=== PATIENT | male | born 1960 | race Caucasian/White ===

== ENCOUNTER → 2017-04-28 | Outpatient (CLI) | payer BC ==
[~2017-04-28] MED LIST: ABIL5 PO; ASPI-1159 PO; DOXE150C PO; GABA-529 PO; LIRA0.6P2 SQ; LORA1TAB PO; OMEP20TA80 PO; ROSU10TA PO; TADA5TAB PO; TAMS0.4C31 PO; TRAM50TA3 PO
[2017-04-28 15:09] LABS: CARBON DIOXIDE 27 mEq/L (21-32); CHLORIDE 104 mEq/L (98-107)
[2017-04-28 16:13] LABS: PROSTRATE SPECIFIC AG TOTAL 1.09 ng/mL (0.0-4.0)
== END | disposition home or self-care (01) ==
LOC: LAB 14:11
PROVIDERS: ATTEND Pathology Anatomic Pathology & Clinical Pathology
DX: E11.40 Type 2 diabetes mellitus with diabetic neuropathy, unspecified (principal); R97.20 Elevated prostate specific antigen [PSA]
CPT/HCPCS: 36415; 80053; 82607; 83036; 84153; 84443

== ENCOUNTER → 2018-03-02 | Outpatient (CLI) | payer BC ==
[~2018-03-02] MED LIST changes: +OMEP20TA2 PO; -OMEP20TA80 PO
[2018-03-02 14:21] LABS: BASOPHILS % 0.5 % (0.0-2.0); EOSINOPHILS % 2.4 % (0.0-5.0); HEMATOCRIT. 42.9 % (42.0-52.0); HEMOGLOBIN. 14.5 g/dL (14.0-18.0); LYMPHOCYTES % 23.4 % (20.0-50.0); MEAN CORPUSCULAR HEMOGLOBIN 29.9 pg (28.0-32.0); MEAN CORPUSCULAR VOLUME 88.3 fL (80.0-94.0); MEAN PLATELET VOLUME 8.4 fl (7.4-10.4); MONOCYTES % 6.7 % (2.0-8.0); PLATELET 204 x1000/uL (130-400); RED BLOOD CELL COUNT 4.86 mill/uL (4.7-6.1)
[2018-03-02 14:22] LABS: CLARITY URINE CLEAR (CLEAR); COLOR URINE YELLOW (YELLOW); KETONES URINE NEGATIVE (NEGATIVE); LEUKOCYTE ESTERASE URINE NEGATIVE (NEGATIVE); NITRITE URINE NEGATIVE (NEGATIVE); OCCULT BLOOD URINE NEGATIVE (NEGATIVE); PROTEIN URINE NEGATIVE (NEGATIVE); SPECIFIC GRAVITY URINE 1.005 (1.005-1.030); UROBILINOGEN URINE 0.2 E.U./dL (0.2-1.0)
[2018-03-02 14:26] LABS: CHLORIDE 104 mEq/L (98-107)
[2018-03-02 14:33] LABS: LDL CHOLESTEROL 80 mg/dL (5-100); TOTAL IRON BINDING CAPACITY 341 ug/dL (250-450)
[2018-03-02 14:34] LABS: HDL CHOLESTEROL 36 mg/dL (40-59)
[2018-03-02 14:51] LABS: FERRITIN 155 ng/mL (22-322)
[2018-03-02 15:13] LABS: FOLIC ACID (FOLATE) SERUM > 20.00 ng/mL (>5.38)
[2018-03-02 16:33] LABS: VITAMIN B12 SERUM 555 pg/mL (211-911)
[2018-03-04 13:07] LABS: MICROALBUMIN RANDOM URINE <3.0 ug/mL (Not Estab.)
== END | disposition home or self-care (01) ==
LOC: LAB 13:22
PROVIDERS: ATTEND Emergency Medicine
DX: Z00.01 Encounter for general adult medical examination with abnormal findings (principal); Z12.5 Encounter for screening for malignant neoplasm of prostate; N39.0 Urinary tract infection, site not specified; I10 Essential (primary) hypertension; E11.51 Type 2 diabetes mellitus with diabetic peripheral angiopathy without gangrene; R79.89 Other specified abnormal findings of blood chemistry
CPT/HCPCS: 36415; 80053; 80061; 81003; 82043; 82306; 82570; 82607; 82728; 82746; 83036; 83540; 83550; 84153; 84443; 85025; 86592; 87086

== ENCOUNTER 2018-09-15 19:39 | Inpatient (IN) | payer BC ==
[~2018-09-15] VITALS: Ht 177.8 cm; Wt 112.9 kg
[2018-09-15] MEDS ORDERED: NITROGLYCERIN 0.4MG TABLET SL SL PRN (20:15)
[2018-09-15] MEDS ORDERED: NITROGLYCERIN 0.4MG TABLET SL SL ONE (20:20)
[2018-09-15 20:49] LABS: BASOPHILS % 0.6 % (0.0-2.0); EOSINOPHILS % 1.7 % (0.0-5.0); HEMATOCRIT. 41.6 % (42.0-52.0); HEMOGLOBIN. 14.5 g/dL (14.0-18.0); LYMPHOCYTES % 30.1 % (20.0-50.0); MEAN CORPUSCULAR VOLUME 88.6 fL (80.0-94.0); MEAN PLATELET VOLUME 9.6 fl (7.4-10.4); MONOCYTES % 7.1 % (2.0-8.0); NEUTROPHILS % 60.5 % (40.0-76.0); PLATELET 209 x1000/uL (130-400); RED BLOOD CELL COUNT 4.69 mill/uL (4.7-6.1); RED CELL DISTRIBUTION WIDTH 13.6 % (11.6-14.6)
[2018-09-15 20:58] LABS: CHLORIDE 105 mEq/L (98-107)
[2018-09-15 20:59] LABS: D-DIMER 0.27 mg/L FEU (<0.50); PARTIAL THROMBOPLASTIN TIME 28.8 sec (23.4-31.0); PROTHROMBIN TIME 10.2 sec (9.1-11.1)
[2018-09-15] MEDS ORDERED: FUROSEMIDE 20MG/2ML VIAL IVP ONE (21:30)
[2018-09-15] MEDS ORDERED: ONDANSETRON HCL 4MG/2ML INJ IV PRN (23:00)
[2018-09-15] MEDS ORDERED: ZOLPIDEM TARTRATE 5MG TABLET PO PRN (23:00)
[2018-09-15] MEDS ORDERED: IPRATROPIUM/ALBUTEROL 0.5-3(2.5)MG/3ML NEB INH PRN (23:00)
[2018-09-15] MEDS ORDERED: ACETAMINOPHEN 325MG TABLET PO PRN (23:00)
[2018-09-16] VITALS (7 sets, daily range): BP systolic 114–137; BP diastolic 68–87
[2018-09-16] MEDS ORDERED: MORPHINE SULFATE 2 MG/ML CPJ (NOT FOR IM USE) IV ONE (00:30)
[2018-09-16] MEDS ORDERED: LORA2TAB95 MT (02:02)
[2018-09-16] MEDS ORDERED: DEXTROSE 50% WATER 50ML SYRINGE IV PRN (06:00)
[2018-09-16 06:41] LABS: CREATINE KINASE MB FRACTION 1.6 ng/mL (0.5-3.6); HDL CHOLESTEROL 35 mg/dL (40-59); LDL CHOLESTEROL 92 mg/dL (5-100)
[2018-09-16] MEDS: BLOOD SUGAR DIAGNOSTIC STRIP TEST SCH ×4 (06:54→21:22)
[2018-09-16] MEDS: INSULIN LISPRO 100 UNITS/ML SUBCUT SCH ×4 (07:28→21:28)
[2018-09-16] MEDS ORDERED: LORAZEPAM 1MG TABLET PO PRN (08:30)
[2018-09-16] MEDS ORDERED: REGADENOSON 0.4 MG/5 ML IV NR (08:30)
[2018-09-16] MEDS: ASPIRIN 81MG EC TABLET PO SCH (08:50)
[2018-09-16] MEDS: FAMOTIDINE 20MG TABLET PO SCH ×2 (08:51→21:23)
[2018-09-16] MEDS: TAMSULOSIN HCL 0.4MG SR CAPSULE PO SCH (08:51)
[2018-09-16] MEDS: ENOXAPARIN 30MG/0.3ML SYR SUBCUT SCH ×2 (08:51→21:22)
[2018-09-16] MEDS ORDERED: REGADENOSON 0.4 MG/5 ML IV ONE (11:18)
[2018-09-16] MEDS: GABAPENTIN 100MG CAPSULE PO SCH ×2 (13:46→21:22)
[2018-09-16 14:19] LABS: *AMPHETAMINES SCREEN URINE NEGATIVE (NEGATIVE); *BARBITURATES SCREEN URINE NEGATIVE (NEGATIVE); *BENZODIAZEPINES SCREEN URINE NEGATIVE (NEGATIVE); *COCAINE SCREEN URINE NEGATIVE (NEGATIVE)
[2018-09-16 14:20] LABS: CANNABINOID URINE SCREEN NEGATIVE (NEGATIVE); METHADONE URINE SCREEN NEGATIVE (NEGATIVE); OPIATES URINE SCREEN PRESUMTIVE POSITIVE (NEGATIVE); PHENCYCLIDINE URINE SCREEN NEGATIVE (NEGATIVE)
[2018-09-16] MEDS ORDERED: GLIMEPIRIDE 2MG TABLET PO SCH (16:00)
[2018-09-16] MEDS: LINAGLIPTIN 5MG TABLET PO SCH (16:19)
[2018-09-16] MEDS ORDERED: ARIPIPRAZOLE 2MG TABLET PO SCH (21:00)
[2018-09-16] MEDS ORDERED: DOXEPIN HCL 25MG CAPSULE PO SCH (21:00)
[2018-09-16] MEDS ORDERED: ATORVASTATIN CALCIUM 10MG TABLET PO SCH (21:00)
[2018-09-17 00:07] VITALS: BP 115/76
[2018-09-17 04:00] VITALS: BP 116/80
[2018-09-17] MEDS: BLOOD SUGAR DIAGNOSTIC STRIP TEST SCH ×2 (06:11→11:46)
[2018-09-17] MEDS: GABAPENTIN 100MG CAPSULE PO SCH (06:11)
[2018-09-17 07:08] LABS: BASOPHILS % 0.5 % (0.0-2.0); EOSINOPHILS % 2.1 % (0.0-5.0); HEMATOCRIT. 42.6 % (42.0-52.0); HEMOGLOBIN. 14.8 g/dL (14.0-18.0); LYMPHOCYTES % 22.5 % (20.0-50.0); MEAN CORPUSCULAR VOLUME 89.2 fL (80.0-94.0); MEAN PLATELET VOLUME 9.3 fl (7.4-10.4); MONOCYTES % 7.7 % (2.0-8.0); NEUTROPHILS % 67.2 % (40.0-76.0); PLATELET 187 x1000/uL (130-400); RED BLOOD CELL COUNT 4.78 mill/uL (4.7-6.1); RED CELL DISTRIBUTION WIDTH 13.5 % (11.6-14.6)
[2018-09-17] MEDS ORDERED: GLIMEPIRIDE 2MG TABLET PO SCH (07:20)
[2018-09-17] MEDS: INSULIN LISPRO 100 UNITS/ML SUBCUT SCH ×2 (07:50→12:47)
[2018-09-17] MEDS: TAMSULOSIN HCL 0.4MG SR CAPSULE PO SCH (08:52)
[2018-09-17] MEDS: LINAGLIPTIN 5MG TABLET PO SCH (08:52)
[2018-09-17] MEDS: ASPIRIN 81MG EC TABLET PO SCH (08:52)
[2018-09-17] MEDS: FAMOTIDINE 20MG TABLET PO SCH (08:52)
[2018-09-17] MEDS: ENOXAPARIN 30MG/0.3ML SYR SUBCUT SCH (08:53)
[2018-09-17 09:27] VITALS: BP 122/76
[2018-09-17 09:41] LABS: CHLORIDE 103 mEq/L (98-107)
[2018-09-17 10:58] VITALS: BP 120/74
[2018-09-17 12:45] VITALS: BP 124/80
== END 2018-09-17 15:00 | disposition home or self-care (01) | DRG 313 ==
LOC: ER 19:39 → 6WST 21:18 → EDBEDREQTM 21:23 → EDBEDREQ 21:23 → ENRESERV 22:30
PROVIDERS: ADMIT Internal Medicine Geriatric Medicine; ATTEND Internal Medicine Geriatric Medicine
DX: R07.9 Chest pain, unspecified (principal); I10 Essential (primary) hypertension; E11.59 Type 2 diabetes mellitus with other circulatory complications; D64.9 Anemia, unspecified; E78.5 Hyperlipidemia, unspecified; F41.9 Anxiety disorder, unspecified; E11.42 Type 2 diabetes mellitus with diabetic polyneuropathy; E78.00 Pure hypercholesterolemia, unspecified; F31.9 Bipolar disorder, unspecified; G89.29 Other chronic pain; E66.9 Obesity, unspecified; K22.70 Barrett's esophagus without dysplasia; M54.9 Dorsalgia, unspecified; K21.9 Gastro-esophageal reflux disease without esophagitis; N40.0 Benign prostatic hyperplasia without lower urinary tract symptoms; Z79.82 Long term (current) use of aspirin; Z80.0 Family history of malignant neoplasm of digestive organs; Z82.5 Family history of asthma and other chronic lower respiratory diseases; Z68.35 Body mass index [BMI] 35.0-35.9, adult; Z88.0 Allergy status to penicillin; Z79.899 Other long term (current) drug therapy
CPT/HCPCS: 36415; 71045; 78452; 80048; 80061; 80305; 82553; 82962; 83036; 83880; 84484; 85379; 93005; 93017; 93306; 93970; 96374; 96375; 99285; A9500; J1650; J1815; J1940; J2270; J2405; J2785

== ENCOUNTER 2018-12-20 08:15 | Emergency (ER) | payer BC ==
[~2018-12-20] VITALS: Ht 177.8 cm; Wt 118.0 kg
[~2018-12-20 08:15] MED LIST changes: +LORA2TAB95 MT
[2018-12-20] MEDS ORDERED: KETOROLAC 60MG/2ML VIAL IM ONE (08:45)
[2018-12-20] MEDS ORDERED: DEXAMETHASONE 10 MG/ML VIAL IM ONE (08:45)
[2018-12-20] MEDS ORDERED: DIAZEPAM 2 MG TABLET PO ONE (10:45)
[2018-12-20 11:47] LABS: CLARITY URINE CLEAR (CLEAR); COLOR URINE YELLOW (YELLOW); KETONES URINE NEGATIVE (NEGATIVE); LEUKOCYTE ESTERASE URINE NEGATIVE (NEGATIVE); NITRITE URINE NEGATIVE (NEGATIVE); OCCULT BLOOD URINE NEGATIVE (NEGATIVE); PROTEIN URINE NEGATIVE (NEGATIVE); SPECIFIC GRAVITY URINE 1.005 (1.005-1.030); UROBILINOGEN URINE 0.2 E.U./dL (0.2-1.0)
[2018-12-20 12:42] VITALS: BP 163/92
== END 2018-12-20 12:42 | disposition home or self-care (01) ==
LOC: ER 08:15
DX: M54.42 Lumbago with sciatica, left side (principal); F41.9 Anxiety disorder, unspecified; F32.9 Major depressive disorder, single episode, unspecified; E11.9 Type 2 diabetes mellitus without complications; K21.9 Gastro-esophageal reflux disease without esophagitis; I10 Essential (primary) hypertension; Z88.0 Allergy status to penicillin; Z79.82 Long term (current) use of aspirin
CPT/HCPCS: 81003; 96372; 99283; J1100; J1885; Z7610

== ENCOUNTER 2019-03-12 00:56 | Inpatient (IN) | payer BC ==
[~2019-03-12] VITALS: Ht 177.8 cm; Wt 125.4 kg
[2019-03-12] VITALS (47 sets, daily range): BP systolic 92–127; BP diastolic 46–82
[2019-03-12] MEDS ORDERED: SODIUM CHLORIDE 0.9% 1,000 ML IV ONE ×2 (01:37→13:00)
[2019-03-12] MEDS ORDERED: MORPHINE SULFATE 4 MG/ML CPJ (NOT FOR IM USE) IV STA (01:37)
[2019-03-12] MEDS ORDERED: ONDANSETRON HCL 4MG/2ML INJ IV STA (01:37)
[2019-03-12] MEDS ORDERED: FAMOTIDINE 20MG/2ML VIAL IV STA (01:37)
[2019-03-12 01:44] LABS: HEMATOCRIT. 41.1 % (42.0-52.0); HEMOGLOBIN. 14.1 g/dL (14.0-18.0); MEAN CORPUSCULAR HEMOGLOBIN 30.2 pg (28.0-32.0); MEAN CORPUSCULAR VOLUME 87.7 fL (80.0-94.0); MEAN PLATELET VOLUME 8.9 fl (7.4-10.4); PLATELET 201 x1000/uL (130-400); RED BLOOD CELL COUNT 4.68 mill/uL (4.7-6.1); RED CELL DISTRIBUTION WIDTH 13.5 % (11.6-14.6)
[2019-03-12 01:51] LABS: CHLORIDE 100 mEq/L (98-107)
[2019-03-12 01:54] LABS: PROTHROMBIN TIME 10.7 sec (9.6-11.0)
[2019-03-12 03:20] LABS: PLATELET ESTIMATE NORMAL
[2019-03-12] MEDS ORDERED: CEFTRIAXONE 1 G PREMIX 50 ML IV NR (03:30)
[2019-03-12] MEDS ORDERED: IOHEXOL-300 100 ML BOTTLE ONE (03:50)
[2019-03-12] MEDS ORDERED: ONDANSETRON HCL 4MG/2ML INJ IV PRN (07:30)
[2019-03-12] MEDS ORDERED: HYDROMORPHONE HCL/PF 2MG/ML CPJ IV PRN (07:30)
[2019-03-12] MEDS ORDERED: CLONIDINE 0.1MG TABLET PO PRN (07:30)
[2019-03-12] MEDS ORDERED: ACETAMINOPHEN 650MG SUPP PR PRN (07:30)
[2019-03-12] MEDS ORDERED: METRONIDAZOLE 500 MG PREMIX 100 ML IV SCH (08:00)
[2019-03-12] MEDS ORDERED: LEVOFLOXACIN 500MG PREMIX 100 ML IV SCH (08:00)
[2019-03-12] MEDS: DEXT 5%/0.45% NACL 1000ML 1,000 ML IV SCH ×2 (08:01→14:29)
[2019-03-12] MEDS ORDERED: SODIUM CHLORIDE 0.9% 2,000 ML IV ONE ×2 (08:20→11:45)
[2019-03-12] MEDS ORDERED: NOREPINEPHRINE 8 MG in DEXT 5% WATER 242 ML IV PRN ×2 (09:45→10:00)
[2019-03-12 11:56] LABS: HEMATOCRIT. 35.8 % (42.0-52.0); MEAN CORPUSCULAR HEMOGLOBIN 29.9 pg (28.0-32.0); MEAN CORPUSCULAR VOLUME 89.6 fL (80.0-94.0); PLATELET 163 x1000/uL (130-400); RED BLOOD CELL COUNT 3.99 mill/uL (4.7-6.1); RED CELL DISTRIBUTION WIDTH 13.3 % (11.6-14.6)
[2019-03-12 12:11] LABS: PLATELET ESTIMATE NORMAL
[2019-03-12] MEDS ORDERED: VANCOMYCIN 1 G PREMIX 200 ML IV SCH (12:15)
[2019-03-12] MEDS ORDERED: POTASSIUM CHLORIDE INJ 40 MEQ in DEXT 5% WATER 250 ML IV SCH (14:00)
[2019-03-12] MEDS ORDERED: VANCOMYCIN 2,000 MG in DEXT 5% WATER 500 ML IV SCH (14:00)
[2019-03-12] MEDS: METRONIDAZOLE 500 MG PREMIX 100 ML IV SCH ×2 (14:13→22:19)
[2019-03-12] MEDS: IPRATROPIUM/ALBUTEROL 0.5-3(2.5)MG/3ML NEB INH SCH ×2 (14:47→20:26)
[2019-03-12] MEDS: HYDROMORPHONE HCL/PF 2MG/ML CPJ IV PRN ×2 (15:07→19:50)
[2019-03-12 15:49] LABS: CLARITY URINE CLEAR (CLEAR); COLOR URINE YELLOW (YELLOW); KETONES URINE TRACE (NEGATIVE); LEUKOCYTE ESTERASE URINE NEGATIVE (NEGATIVE); NITRITE URINE NEGATIVE (NEGATIVE); OCCULT BLOOD URINE NEGATIVE (NEGATIVE); PH URINE 5.5 (4.5-8.0); PROTEIN URINE NEGATIVE (NEGATIVE); SPECIFIC GRAVITY URINE 1.034 (1.005-1.030); UROBILINOGEN URINE 0.2 E.U./dL (0.2-1.0)
[2019-03-12] MEDS: BLOOD SUGAR DIAGNOSTIC STRIP TEST SCH (17:15)
[2019-03-12] MEDS ORDERED: DEXTROSE 50% WATER 50ML SYRINGE IV PRN (17:15)
[2019-03-12] MEDS: INSULIN LISPRO 100 UNITS/ML SUBCUT SCH (17:38)
[2019-03-12] MEDS ORDERED: MORPHINE SULFATE 4 MG/ML CPJ (NOT FOR IM USE) IV PRN (21:45)
[2019-03-12] MEDS ORDERED: LORAZEPAM 2MG/ML CPJ IV PRN (21:45)
[2019-03-13] VITALS (62 sets, daily range): BP systolic 49–149; BP diastolic 42–82
[2019-03-13] MEDS: BLOOD SUGAR DIAGNOSTIC STRIP TEST SCH ×4 (00:33→18:19)
[2019-03-13] MEDS: INSULIN LISPRO 100 UNITS/ML SUBCUT SCH ×4 (00:38→18:02)
[2019-03-13] MEDS: HYDROMORPHONE HCL/PF 2MG/ML CPJ IV PRN ×5 (01:40→19:54)
[2019-03-13] MEDS: DEXT 5%/0.45% NACL 1000ML 1,000 ML IV SCH (01:48)
[2019-03-13 05:45] LABS: HEMATOCRIT. 34.3 % (42.0-52.0); HEMOGLOBIN. 11.6 g/dL (14.0-18.0); MEAN CORPUSCULAR HEMOGLOBIN 30.1 pg (28.0-32.0); MEAN CORPUSCULAR VOLUME 89.4 fL (80.0-94.0); MEAN PLATELET VOLUME 9.6 fl (7.4-10.4); PLATELET 133 x1000/uL (130-400); RED BLOOD CELL COUNT 3.83 mill/uL (4.7-6.1); RED CELL DISTRIBUTION WIDTH 13.6 % (11.6-14.6)
[2019-03-13 06:08] LABS: CHLORIDE 109 mEq/L (98-107)
[2019-03-13 06:17] LABS: LDL CHOLESTEROL 22 mg/dL (5-100)
[2019-03-13 06:19] LABS: HDL CHOLESTEROL 27 mg/dL (40-59)
[2019-03-13] MEDS: METRONIDAZOLE 500 MG PREMIX 100 ML IV SCH ×3 (06:50→21:34)
[2019-03-13] MEDS ORDERED: VANCOMYCIN 1 G PREMIX 200 ML IV SCH (08:00)
[2019-03-13] MEDS: SODIUM CHLORIDE 0.45% 1,000 ML IV SCH (08:08)
[2019-03-13 08:28] LABS: PLATELET ESTIMATE NORMAL
[2019-03-13] MEDS: IPRATROPIUM/ALBUTEROL 0.5-3(2.5)MG/3ML NEB INH SCH ×3 (08:51→15:25)
[2019-03-13] MEDS ORDERED: LEVOFLOXACIN 500MG PREMIX 100 ML IV SCH (11:00)
[2019-03-13] MEDS: CEFEPIME 1,000 MG in DEXTROSE 5% WATER 50 ML IV SCH (14:47)
[2019-03-13 16:25] LABS: BG CARBOXYHEMOGLOBIN 0.6 % (0.5-1.5); BG HCO3 ACT 23.3 mmol/L (22.0-26.0); BG METHEMOGLOBIN 0.1 % (0.0-1.5); BG OXYHEMOGLOBIN 92.3 % (94.0-97.0); BG PCO2 37.4 mmHg (35.0-45.0); BG PH 7.412 (7.350-7.450); BG PO2 64.2 mmHg (75.0-100.0); BG SAMPLE SITE RIGHT RADIAL; BG TOTAL HEMOGLOBIN 11.9 g/dL (12.0-18.0); BG VENT MODE NASAL CANNULA
[2019-03-13] MEDS ORDERED: IPRATROPIUM/ALBUTEROL 0.5-3(2.5)MG/3ML NEB HHN PRN (16:30)
[2019-03-13] MEDS ORDERED: LORAZEPAM 2MG/ML CPJ IV PRN (16:30)
[2019-03-13] MEDS ORDERED: HYDROMORPHONE HCL/PF 2MG/ML CPJ IV PRN (16:30)
[2019-03-13] MEDS: KETOROLAC 30MG/ML VIAL IV PRN (16:43)
[2019-03-13 17:59] LABS: CHLORIDE 108 mEq/L (98-107)
[2019-03-13] MEDS: VANCOMYCIN 1 G PREMIX 200 ML IV SCH (18:01)
[2019-03-13] MEDS: PANTOPRAZOLE SODIUM 40 MG/VIAL IV SCH (18:01)
[2019-03-13] MEDS: IPRATROPIUM BROMIDE (0.02%) 0.5MG/2.5ML NEB HHN SCH (20:39)
[2019-03-13] MEDS: SODIUM CHLORIDE 3% FOR INH 4ML UD NEB INH SCH (20:40)
[2019-03-14] VITALS (49 sets, daily range): BP systolic 97–126; BP diastolic 64–87
[2019-03-14] MEDS: IPRATROPIUM BROMIDE (0.02%) 0.5MG/2.5ML NEB HHN SCH ×6 (00:21→20:39)
[2019-03-14] MEDS: BLOOD SUGAR DIAGNOSTIC STRIP TEST SCH ×5 (00:28→23:09)
[2019-03-14] MEDS: KETOROLAC 30MG/ML VIAL IV PRN (00:34)
[2019-03-14] MEDS: SODIUM CHLORIDE 0.45% 1,000 ML IV SCH (00:50)
[2019-03-14] MEDS: CEFEPIME 1,000 MG in DEXTROSE 5% WATER 50 ML IV SCH ×2 (02:52→13:54)
[2019-03-14] MEDS: SODIUM CHLORIDE 3% FOR INH 4ML UD NEB INH SCH ×4 (04:28→20:40)
[2019-03-14 05:46] LABS: HEMOGLOBIN. 10.5 g/dL (14.0-18.0); MEAN CORPUSCULAR HEMOGLOBIN 30.1 pg (28.0-32.0); MEAN CORPUSCULAR VOLUME 88.9 fL (80.0-94.0); MEAN PLATELET VOLUME 9.2 fl (7.4-10.4); PLATELET 128 x1000/uL (130-400); RED BLOOD CELL COUNT 3.49 mill/uL (4.7-6.1); RED CELL DISTRIBUTION WIDTH 13.8 % (11.6-14.6)
[2019-03-14] MEDS: METRONIDAZOLE 500 MG PREMIX 100 ML IV SCH ×3 (05:57→21:28)
[2019-03-14] MEDS: INSULIN LISPRO 100 UNITS/ML SUBCUT SCH ×5 (05:57→23:14)
[2019-03-14] MEDS: VANCOMYCIN 1 G PREMIX 200 ML IV SCH (05:57)
[2019-03-14 05:59] LABS: CHLORIDE 105 mEq/L (98-107)
[2019-03-14] MEDS: HYDROMORPHONE HCL/PF 2MG/ML CPJ IV PRN (06:11)
[2019-03-14 06:13] LABS: PHOSPHORUS 1.3 mg/dL (2.5-4.9)
[2019-03-14 06:16] LABS: T4 FREE 1.08 ng/dL (0.76-1.46); VANCOMYCIN TROUGH 7.9 ug/mL (5.0-10.0)
[2019-03-14 07:32] LABS: PLATELET ESTIMATE SLIGHTLY DECREASED
[2019-03-14] MEDS ORDERED: POTASSIUM PHOS,M-BASIC-D-BASIC 30 MMOL in DEXT 5% WATER 500 ML IV NR (08:00)
[2019-03-14] MEDS: PANTOPRAZOLE SODIUM 40 MG/VIAL IV SCH (08:10)
[2019-03-14] MEDS ORDERED: SKIN ADHESIVE 0.7 GM EA TOP ONE (09:20)
[2019-03-14] MEDS ORDERED: BUPIVACAINE HCL 0.5% (5MG/ML) 50ML ONE (09:20)
[2019-03-14] MEDS ORDERED: KCL 20MEQ/100ML PREMIX 100 ML IV ONE (09:45)
[2019-03-14] MEDS ORDERED: ROCURONIUM BROMIDE 10MG/ML VIAL 5ML IV ONE (10:10)
[2019-03-14] MEDS ORDERED: MIDAZOLAM HCL 2 MG/2 ML VIAL ONE (10:10)
[2019-03-14] MEDS ORDERED: FENTANYL CITRATE/PF 50MCG/ML 2ML VIAL ONE (10:10)
[2019-03-14] MEDS ORDERED: PROPOFOL 200MG/20ML VIAL IV ONE (10:10)
[2019-03-14] MEDS ORDERED: SUCCINYLCHOLINE CHLORIDE 200MG/10ML IV ONE (11:07)
[2019-03-14] MEDS ORDERED: NEOSTIGMINE METHYLSULFATE 1MG/ML 10 ML VIAL ONE (11:07)
[2019-03-14] MEDS ORDERED: GLYCOPYRROLATE 0.2 MG/ML 2ML VIAL ONE (11:07)
[2019-03-14] MEDS ORDERED: KETOROLAC 30MG/ML VIAL ONE (11:07)
[2019-03-14] MEDS ORDERED: MORPHINE SULFATE 4 MG/ML CPJ (NOT FOR IM USE) IV PRN ×2 (11:15→12:30)
[2019-03-14] MEDS ORDERED: HYDROMORPHONE HCL/PF 2MG/ML CPJ IV PRN (11:15)
[2019-03-14] MEDS ORDERED: MEPERIDINE HCL/PF 25MG/ML CPJ IV PRN (11:15)
[2019-03-14] MEDS ORDERED: FENTANYL CITRATE/PF 50MCG/ML 2ML VIAL IV PRN (11:15)
[2019-03-14] MEDS ORDERED: ONDANSETRON HCL 4MG/2ML INJ IV PRN ×2 (11:15→12:30)
[2019-03-14] MEDS: SODIUM CHL 0.45% + KCL 20MEQ/L 1,000 ML IV SCH ×2 (12:19→20:51)
[2019-03-14] MEDS ORDERED: DEXT 5%/0.45% NACL KCL 20MEQ/L 1,000 ML IV SCH (12:27)
[2019-03-14] MEDS ORDERED: HYDROCODONE/ACETAMINOPHEN 5/325MG TABLET PO PRN (12:30)
[2019-03-14] MEDS: SODIUM CHLORIDE 0.9% INJ 3ML FLUSH IVF SCH ×2 (14:19→21:29)
[2019-03-14] MEDS: VANCOMYCIN 1250MG in DEXTROSE 5% WATER 250ML IV SCH ×2 (15:10→21:28)
[2019-03-14] MEDS: MORPHINE SULFATE 4 MG/ML CPJ (NOT FOR IM USE) IV PRN ×2 (17:52→21:00)
[2019-03-15] VITALS (24 sets, daily range): BP systolic 111–137; BP diastolic 67–85
[2019-03-15] MEDS: SODIUM CHLORIDE 3% FOR INH 4ML UD NEB INH SCH ×2 (00:08→04:07)
[2019-03-15] MEDS: IPRATROPIUM BROMIDE (0.02%) 0.5MG/2.5ML NEB HHN SCH ×3 (00:08→20:56)
[2019-03-15] MEDS: CEFEPIME 1,000 MG in DEXTROSE 5% WATER 50 ML IV SCH ×2 (01:02→13:35)
[2019-03-15] MEDS: MORPHINE SULFATE 4 MG/ML CPJ (NOT FOR IM USE) IV PRN ×4 (01:59→21:47)
[2019-03-15] MEDS: METRONIDAZOLE 500 MG PREMIX 100 ML IV SCH ×3 (05:02→21:41)
[2019-03-15] MEDS: SODIUM CHLORIDE 0.9% INJ 3ML FLUSH IVF SCH ×3 (05:02→21:41)
[2019-03-15 05:31] LABS: BASOPHILS % 0.2 % (0.0-2.0); EOSINOPHILS % 1.4 % (0.0-5.0); HEMATOCRIT. 29.3 % (42.0-52.0); HEMOGLOBIN. 10.1 g/dL (14.0-18.0); LYMPHOCYTES % 7.8 % (20.0-50.0); MEAN CORPUSCULAR HEMOGLOBIN 30.6 pg (28.0-32.0); MEAN CORPUSCULAR VOLUME 88.7 fL (80.0-94.0); MEAN PLATELET VOLUME 9.2 fl (7.4-10.4); NEUTROPHILS % 84.6 % (40.0-76.0); PLATELET 147 x1000/uL (130-400); RED CELL DISTRIBUTION WIDTH 13.7 % (11.6-14.6)
[2019-03-15 05:37] LABS: CHLORIDE 105 mEq/L (98-107)
[2019-03-15 05:42] LABS: PHOSPHORUS 1.4 mg/dL (2.5-4.9)
[2019-03-15] MEDS: VANCOMYCIN 1250MG in DEXTROSE 5% WATER 250ML IV SCH ×3 (06:07→23:00)
[2019-03-15] MEDS: BLOOD SUGAR DIAGNOSTIC STRIP TEST SCH ×4 (06:07→21:06)
[2019-03-15] MEDS: INSULIN LISPRO 100 UNITS/ML SUBCUT SCH ×3 (06:08→17:23)
[2019-03-15] MEDS: SODIUM CHL 0.45% + KCL 20MEQ/L 1,000 ML IV SCH ×2 (06:37→15:44)
[2019-03-15] MEDS ORDERED: POTASSIUM PHOS,M-BASIC-D-BASIC 30 MMOL in DEXTROSE 5% WATER 1,000 ML IV SCH (08:45)
[2019-03-15] MEDS ORDERED: POTASSIUM PHOS,M-BASIC-D-BASIC 30 MMOL in DEXT 5% WATER 500 ML IV SCH (09:00)
[2019-03-15] MEDS: PANTOPRAZOLE SODIUM 40 MG/VIAL IV SCH (09:04)
[2019-03-15] MEDS: BUPROPION HCL 150MG TABLET XL 24HR PO SCH (09:05)
[2019-03-15] MEDS: DOCUSATE SODIUM 250MG CAPSULE PO SCH (09:05)
[2019-03-15] MEDS: HYDROCODONE/ACETAMINOPHEN 5/325MG TABLET PO PRN ×2 (09:06→17:23)
[2019-03-15] MEDS ORDERED: KETOROLAC 30MG/ML VIAL IV PRN (11:30)
[2019-03-15] MEDS: INSULIN LISPRO (LOW DOSE) 100 UNITS/ML SUBCUT SCH (17:24)
[2019-03-15] MEDS ORDERED: INSULIN LISPRO 100 UNITS/ML SUBCUT SCH (17:40)
[2019-03-15] MEDS ORDERED: INSULIN GLARGINE UD 100 UNITS/ML SYR SUBCUT SCH (22:00)
[2019-03-16] VITALS: BP 96/62
[2019-03-16] MEDS: CEFEPIME 1,000 MG in DEXTROSE 5% WATER 50 ML IV SCH (03:17)
[2019-03-16] MEDS: SODIUM CHL 0.45% + KCL 20MEQ/L 1,000 ML IV SCH ×2 (03:17→13:28)
[2019-03-16 04:00] VITALS: BP 122/80
[2019-03-16] MEDS: IPRATROPIUM BROMIDE (0.02%) 0.5MG/2.5ML NEB HHN SCH ×4 (04:48→16:00)
[2019-03-16] MEDS: METRONIDAZOLE 500 MG PREMIX 100 ML IV SCH (05:10)
[2019-03-16] MEDS: MORPHINE SULFATE 4 MG/ML CPJ (NOT FOR IM USE) IV PRN ×2 (05:10→07:57)
[2019-03-16] MEDS: SODIUM CHLORIDE 0.9% INJ 3ML FLUSH IVF SCH (05:10)
[2019-03-16] MEDS: VANCOMYCIN 1250MG in DEXTROSE 5% WATER 250ML IV SCH (06:15)
[2019-03-16] MEDS: BLOOD SUGAR DIAGNOSTIC STRIP TEST SCH ×2 (06:15→13:25)
[2019-03-16 07:18] LABS: HEMATOCRIT. 32.1 % (42.0-52.0); HEMOGLOBIN. 10.9 g/dL (14.0-18.0); MEAN CORPUSCULAR HEMOGLOBIN 30.2 pg (28.0-32.0); MEAN CORPUSCULAR VOLUME 89.2 fL (80.0-94.0); MEAN PLATELET VOLUME 8.9 fl (7.4-10.4); PLATELET 175 x1000/uL (130-400); RED CELL DISTRIBUTION WIDTH 13.7 % (11.6-14.6)
[2019-03-16 07:50] LABS: CHLORIDE 102 mEq/L (98-107)
[2019-03-16 07:56] LABS: PHOSPHORUS 2.1 mg/dL (2.5-4.9)
[2019-03-16] MEDS: BUPROPION HCL 150MG TABLET XL 24HR PO SCH (07:57)
[2019-03-16] MEDS: DOCUSATE SODIUM 250MG CAPSULE PO SCH (07:57)
[2019-03-16] MEDS: PANTOPRAZOLE SODIUM 40 MG/VIAL IV SCH (07:57)
[2019-03-16] MEDS: INSULIN LISPRO (LOW DOSE) 100 UNITS/ML SUBCUT SCH ×2 (07:58→13:27)
[2019-03-16] MEDS: INSULIN LISPRO 100 UNITS/ML SUBCUT SCH ×2 (07:59→13:27)
[2019-03-16 08:00] VITALS: BP 149/86
[2019-03-16 09:03] LABS: PLATELET ESTIMATE NORMAL
[2019-03-16] MEDS ORDERED: SODIUM PHOS,M-BASIC-D-BASIC 20 MM in DEXT 5% WATER 243.3333 ML IV NR (11:30)
[2019-03-16 11:52] VITALS: BP 149/86
[2019-03-16 12:00] VITALS: BP 145/87
[2019-03-16 16:00] VITALS: BP 120/82
[2019-03-16] MEDS ORDERED: METRONIDAZOLE 500MG TABLET PO SCH (21:00)
== END 2019-03-16 18:00 | disposition home or self-care (01) | DRG 853 ==
LOC: ER 00:56 → MICUSO 04:04 → EDBEDREQTM 04:07 → EDBEDREQ 04:07 → ENRESERV 07:17 → CANRESERV 07:17 → ENRESERV 09:37 → EDBEDREQSVC 09:43 → ENRESERV 10:05 → 7WST 03-15 15:02
PROVIDERS: ADMIT Internal Medicine Geriatric Medicine; ATTEND Internal Medicine Geriatric Medicine
PROC: 0FT44ZZ Resection of Gallbladder, Percutaneous Endoscopic Approach (ICD-10-PCS; principal; 2019-03-14)
DX: A41.9 Sepsis, unspecified organism (principal); J96.01 Acute respiratory failure with hypoxia; R65.21 Severe sepsis with septic shock; K80.00 Calculus of gallbladder with acute cholecystitis without obstruction; E46 Unspecified protein-calorie malnutrition; E87.2 Acidosis; I42.9 Cardiomyopathy, unspecified; J98.11 Atelectasis; D64.9 Anemia, unspecified; E86.0 Dehydration; E78.5 Hyperlipidemia, unspecified; E66.9 Obesity, unspecified; E11.65 Type 2 diabetes mellitus with hyperglycemia; E11.40 Type 2 diabetes mellitus with diabetic neuropathy, unspecified; F41.9 Anxiety disorder, unspecified; I10 Essential (primary) hypertension; N40.0 Benign prostatic hyperplasia without lower urinary tract symptoms; D69.6 Thrombocytopenia, unspecified; K82.A1 Gangrene of gallbladder in cholecystitis; K21.9 Gastro-esophageal reflux disease without esophagitis; K57.30 Diverticulosis of large intestine without perforation or abscess without bleeding; K76.0 Fatty (change of) liver, not elsewhere classified; K76.89 Other specified diseases of liver; E83.39 Other disorders of phosphorus metabolism; F31.9 Bipolar disorder, unspecified; Z80.0 Family history of malignant neoplasm of digestive organs; Z80.7 Family history of other malignant neoplasms of lymphoid, hematopoietic and related tissues; Z82.49 Family history of ischemic heart disease and other diseases of the circulatory system; Z82.5 Family history of asthma and other chronic lower respiratory diseases; Z88.0 Allergy status to penicillin; Z68.39 Body mass index [BMI] 39.0-39.9, adult; Z79.82 Long term (current) use of aspirin; Z79.899 Other long term (current) drug therapy; Z89.021 Acquired absence of right finger(s)
CPT/HCPCS: 36415; 36600; 71045; 74177; 76705; 80048; 80061; 80178; 80202; 82306; 82375; 82533; 82805; 82962; 83036; 83605; 83735; 84100; 84145; 84439; 84443; 84484; 86850; 86900; 88304; 93005; 93306; 93970; 94640; 96361; 96374; 96375; 99285; C9113; J0330; J0692; J0696; J1170; J1815; J1885; J1956; J2250; J2270; J2405; J2704; J2710; J3010; J3370; J3480; J3490; J7030; J7050; J7060; J7620; Q9967

== ENCOUNTER 2021-11-23 18:21 | Emergency (ER) | payer BC ==
[~2021-11-23] VITALS: Ht 177.8 cm; Wt 113.0 kg
[~2021-11-23 18:21] MED LIST changes: -ASPI-1159 PO; +ASPI-1497 PO; +CRES10 PO; -LIRA0.6P2 SQ; -ROSU10TA PO
[2021-11-23 18:23] VITALS: BP 165/92
[2021-11-23] MEDS ORDERED: CYCL10TA7 MT (21:09)
== END 2021-11-23 21:16 | disposition home or self-care (01) ==
LOC: ER 18:21
DX: S09.8XXA Other specified injuries of head, initial encounter (principal); S29.8XXA Other specified injuries of thorax, initial encounter; I10 Essential (primary) hypertension; E11.9 Type 2 diabetes mellitus without complications; Z90.49 Acquired absence of other specified parts of digestive tract; Z79.82 Long term (current) use of aspirin; Z88.0 Allergy status to penicillin; W07.XXXA Fall from chair, initial encounter; Y93.89 Activity, other specified; Y92.238 Other place in hospital as the place of occurrence of the external cause; Y99.8 Other external cause status
CPT/HCPCS: 72128; 99284

== ENCOUNTER 2023-02-27 08:14 | Emergency (ER) | payer BC ==
[~2023-02-27 08:14] MED LIST changes: +CYCL10TA21 MT; -OMEP20TA2 PO; +OMEP20TA23 PO
[2023-02-27] MEDS ORDERED: ACETAMINOPHEN 325MG TABLET PO ONE (08:30)
[2023-02-27] MEDS ORDERED: LIDOCAINE 5% PATCH TOP ONE (08:30)
[2023-02-27 09:18] LABS: BASOPHILS % 0.4 % (0.0-2.0); EOSINOPHILS % 1.6 % (0.0-5.0); HEMATOCRIT. 41.1 % (42.0-52.0); HEMOGLOBIN. 14.1 g/dL (14.0-18.0); LYMPHOCYTES % 16.1 % (20.0-50.0); MEAN CORPUSCULAR HEMOGLOBIN 30.6 pg (28.0-32.0); MEAN CORPUSCULAR VOLUME 89.3 fL (80.0-94.0); MONOCYTES % 6.2 % (2.0-8.0); NEUTROPHILS % 75.7 % (40.0-76.0); PLATELET 202 x1000/uL (130-400); RED CELL DISTRIBUTION WIDTH 13.3 % (11.6-14.6)
[2023-02-27 09:26] VITALS: BP 149/84
[2023-02-27 09:32] LABS: CHLORIDE 104 mEq/L (98-107)
[2023-02-27 09:41] LABS: ETHANOL BLOOD < 10 mg/dL
[2023-02-27] MEDS ORDERED: LIDO700A15 TP (09:46)
[2023-02-27] MEDS ORDERED: BACL-141 MT (09:46)
[2023-02-27] MEDS ORDERED: ACET-2708 MT (09:46)
== END 2023-02-27 10:03 | disposition home or self-care (01) ==
LOC: ER 08:14
DX: M94.0 Chondrocostal junction syndrome [Tietze] (principal); E11.9 Type 2 diabetes mellitus without complications; I10 Essential (primary) hypertension; Z90.49 Acquired absence of other specified parts of digestive tract; Z79.899 Other long term (current) drug therapy
CPT/HCPCS: 36415; 71045; 80053; 80320; 83690; 83880; 84484; 85025; 93005; 99285; Z7610; G0480

== ENCOUNTER 2023-05-28 12:50 | Emergency (ER) | payer BC ==
[~2023-05-28] VITALS: Ht 182.9 cm; Wt 88.0 kg
[~2023-05-28 12:50] MED LIST changes: +ACET-2708 MT; +BACL-141 MT; +LIDO700A15 TP
[2023-05-28] MEDS ORDERED: [UNRECOGNIZED DRUG - CODE] MC ×2 (13:02)
[2023-05-28] MEDS ORDERED: INSU100I64 SQ ×4 (13:02→13:08)
[2023-05-28 13:05] VITALS: BP 145/99; PULSE 101; RESP 16; TEMP 98.3; O2SAT 95
[2023-05-28] MEDS ORDERED: NEED-401 MC (13:08)
[2023-05-28] MEDS ORDERED: NEED-472 SQ ×2 (13:08)
[2023-05-28] MEDS ORDERED: INSU100I28 SQ (14:20)
== END 2023-05-28 13:50 | disposition home or self-care (01) ==
LOC: ER 12:50
DX: Z76.0 Encounter for issue of repeat prescription (principal); E11.9 Type 2 diabetes mellitus without complications; I10 Essential (primary) hypertension; Z90.49 Acquired absence of other specified parts of digestive tract
CPT/HCPCS: 99281

== ENCOUNTER → 2023-06-19 | Outpatient (CLI) | payer BC ==
[~2023-06-19] MED LIST changes: +INSU100I28 SQ; +NEED-401 MC
[2023-06-19 13:32] LABS: CLARITY URINE CLEAR (CLEAR); COLOR URINE YELLOW (YELLOW); KETONES URINE NEGATIVE (NEGATIVE); LEUKOCYTE ESTERASE URINE NEGATIVE (NEGATIVE); NITRITE URINE NEGATIVE (NEGATIVE); OCCULT BLOOD URINE NEGATIVE (NEGATIVE); PH URINE 5.5 (4.5-8.0); PROTEIN URINE NEGATIVE (NEGATIVE); SPECIFIC GRAVITY URINE 1.009 (1.005-1.030); UROBILINOGEN URINE 0.2 E.U./dL (0.2-1.0)
[2023-06-19 13:49] LABS: BASOPHILS % 0.6 % (0.0-2.0); EOSINOPHILS % 1.3 % (0.0-5.0); HEMATOCRIT. 41.5 % (42.0-52.0); HEMOGLOBIN. 14.4 g/dL (14.0-18.0); LYMPHOCYTES % 22.7 % (20.0-50.0); MEAN CORPUSCULAR HEMOGLOBIN 30.7 pg (28.0-32.0); MEAN CORPUSCULAR VOLUME 88.5 fL (80.0-94.0); MEAN PLATELET VOLUME 9.3 fl (7.4-10.4); MONOCYTES % 5.8 % (2.0-8.0); NEUTROPHILS % 69.6 % (40.0-76.0); PLATELET 243 x1000/uL (130-400); RED BLOOD CELL COUNT 4.69 mill/uL (4.7-6.1); RED CELL DISTRIBUTION WIDTH 13.4 % (11.6-14.6)
[2023-06-19 14:01] LABS: CHLORIDE 99 mEq/L (98-107)
[2023-06-19 14:16] LABS: HDL CHOLESTEROL 42 mg/dL (40-59); LDL CHOLESTEROL 106 mg/dL (5-100); TOTAL IRON BINDING CAPACITY 373 ug/dL (250-450)
[2023-06-19 15:03] LABS: VITAMIN B12 SERUM 743 pg/mL (211-911)
[2023-06-19 15:44] LABS: FERRITIN 238 ng/mL (22-322)
[2023-06-20 19:26] LABS: PROSTRATE SPECIFIC AG TOTAL 1.15 ng/mL (0.0-4.0)
== END | disposition home or self-care (01) ==
LOC: LAB 12:55
PROVIDERS: ATTEND Internal Medicine Geriatric Medicine
DX: Z00.01 Encounter for general adult medical examination with abnormal findings (principal); Z12.5 Encounter for screening for malignant neoplasm of prostate; Z13.220 Encounter for screening for lipoid disorders; Z13.0 Encounter for screening for diseases of the blood and blood-forming organs and certain disorders involving the immune mechanism; I10 Essential (primary) hypertension; E11.59 Type 2 diabetes mellitus with other circulatory complications; M15.0 Primary generalized (osteo)arthritis; N39.0 Urinary tract infection, site not specified
CPT/HCPCS: 36415; 80053; 80061; 81003; 82306; 82607; 82728; 82746; 83036; 83540; 83550; 84153; 84443; 85025; G0103

== ENCOUNTER → 2023-09-09 | Outpatient (CLI) | payer BC | END | disposition home or self-care (01) | LOC: MRI 08:14 | PROVIDERS: ATTEND Internal Medicine Geriatric Medicine | DX: M75.121 Complete rotator cuff tear or rupture of right shoulder, not specified as traumatic (principal); M25.411 Effusion, right shoulder; M19.011 Primary osteoarthritis, right shoulder | CPT/HCPCS: 73221 ==

== ENCOUNTER → 2023-10-23 | Outpatient (CLI) | payer BC ==
[~2023-10-23] MED LIST changes: +TRAM50TA3 MT
[2023-10-23 14:24] LABS: ALANINE AMINOTRANSFERASE 42 IU/L (10-49); ALBUMIN 4.5 g/dL (3.2-4.8); ASPARTATE AMINOTRANSFERASE 31 IU/L (<34); BILIRUBIN TOTAL 0.7 mg/dL (0.1-1.0); CALCIUM 9.7 mg/dL (8.7-10.4); CARBON DIOXIDE 30 mEq/L (21-32); CHLORIDE 104 mEq/L (98-107); CHOLESTEROL 131 mg/dL (<200); GLUCOSE 97 mg/dL (70-105); HDL CHOLESTEROL 34 mg/dL (>55); LDL CHOLESTEROL 82 mg/dL (5-100); POTASSIUM 4.7 mEq/L (3.5-5.1); PROTEIN TOTAL 7.2 g/dL (6.0-8.3); SODIUM 140 mEq/L (136-145); T4 FREE 0.99 ng/dL (0.89-1.76); THYROID STIMULATING HORMONE 2.01 uIU/mL (0.55-4.78); TRIGLYCERIDE 184 mg/dL (0-150); UREA NITROGEN BLOOD 10 mg/dL (9-23)
[2023-10-26 08:12] LABS: MICROALBUMIN RANDOM URINE 3.9 ug/mL (Not Estab.)
== END | disposition home or self-care (01) ==
LOC: LAB 13:32
PROVIDERS: ATTEND Internal Medicine Endocrinology, Diabetes & Metabolism
DX: I10 Essential (primary) hypertension (principal); E11.9 Type 2 diabetes mellitus without complications; E78.00 Pure hypercholesterolemia, unspecified
CPT/HCPCS: 36415; 80053; 80061; 82043; 82570; 83036; 84439; 84443

== ENCOUNTER 2023-10-24 13:42 | Emergency (ER) | payer BC ==
[~2023-10-24] VITALS: Ht 172.7 cm; Wt 92.0 kg
[~2023-10-24 13:42] MED LIST changes: -TRAM50TA3 MT
[2023-10-24 13:49] VITALS: BP 148/83; PULSE 89; RESP 16; TEMP 98.2; O2SAT 100
[2023-10-24] MEDS ORDERED: TRAM50TA3 MT (15:17)
== END 2023-10-24 15:25 | disposition home or self-care (01) ==
LOC: ER 13:42
DX: S92.511A Displaced fracture of proximal phalanx of right lesser toe(s), initial encounter for closed fracture (principal); E11.9 Type 2 diabetes mellitus without complications; I10 Essential (primary) hypertension; K80.20 Calculus of gallbladder without cholecystitis without obstruction; Z90.49 Acquired absence of other specified parts of digestive tract; Z88.0 Allergy status to penicillin; X58.XXXA Exposure to other specified factors, initial encounter; Y93.89 Activity, other specified; Y92.89 Other specified places as the place of occurrence of the external cause; Y99.8 Other external cause status
CPT/HCPCS: 73660; 99283

== ENCOUNTER 2023-11-03 12:47 | Emergency (ER) | payer BC ==
[~2023-11-03] VITALS: Ht 177.8 cm; Wt 113.5 kg
[~2023-11-03 12:47] MED LIST changes: +TRAM50TA3 MT
[2023-11-03 13:01] VITALS: O2SAT 94
[2023-11-03 13:59] LABS: BASOPHILS % 0.4 % (0.0-2.0); EOSINOPHILS % 1.2 % (0.0-5.0); HEMATOCRIT. 42.4 % (42.0-52.0); HEMOGLOBIN. 14.4 g/dL (14.0-18.0); LYMPHOCYTES % 11.1 % (20.0-50.0); MEAN CORPUSCULAR HEMOGLOBIN 30.7 pg (28.0-32.0); MEAN CORPUSCULAR HGB CONC 33.9 g/dL (31.0-37.0); MEAN CORPUSCULAR VOLUME 90.5 fL (80.0-94.0); MEAN PLATELET VOLUME 9.3 fl (7.4-10.4); MONOCYTES % 7.2 % (2.0-8.0); NEUTROPHILS % 80.1 % (40.0-76.0); PLATELET 226 x1000/uL (130-400); RED BLOOD CELL COUNT 4.68 mill/uL (4.7-6.1); RED CELL DISTRIBUTION WIDTH 13.8 % (11.6-14.6); WHITE BLOOD COUNT 9.8 x1000/uL (4.5-11.0)
[2023-11-03 14:25] LABS: CALCIUM 9.5 mg/dL (8.7-10.4); CARBON DIOXIDE 28 mEq/L (21-32); CHLORIDE 101 mEq/L (98-107); CREATININE 1.1 mg/dL (0.6-1.3); GLUCOSE 170 mg/dL (70-105); POTASSIUM 4.4 mEq/L (3.5-5.1); SODIUM 136 mEq/L (136-145); UREA NITROGEN BLOOD 19 mg/dL (9-23)
[2023-11-03 14:28] LABS: TROPONIN I HIGH SENSITIVITY < 4 ng/L (3.0-53)
[2023-11-03 14:52] VITALS: BP 115/70; PULSE 79; RESP 15; TEMP 98.3
== END 2023-11-03 15:41 | disposition home or self-care (01) ==
LOC: ER 12:47
DX: E16.2 Hypoglycemia, unspecified (principal); E11.9 Type 2 diabetes mellitus without complications; Z88.0 Allergy status to penicillin; Z90.49 Acquired absence of other specified parts of digestive tract
CPT/HCPCS: 80048; 85025; 84484; 36415; 71045; 99284; Z7610 ×2

== ENCOUNTER → 2023-11-26 | Outpatient (CLI) | payer BC ==
[2023-11-26 16:17] LABS: BASOPHILS % 0.5 % (0.0-2.0); EOSINOPHILS % 2.4 % (0.0-5.0); HEMOGLOBIN. 13.8 g/dL (14.0-18.0); LYMPHOCYTES % 24.1 % (20.0-50.0); MEAN CORPUSCULAR HEMOGLOBIN 29.7 pg (28.0-32.0); MEAN CORPUSCULAR HGB CONC 32.9 g/dL (31.0-37.0); MEAN CORPUSCULAR VOLUME 90.3 fL (80.0-94.0); MEAN PLATELET VOLUME 8.6 fl (7.4-10.4); MONOCYTES % 7.1 % (2.0-8.0); NEUTROPHILS % 65.9 % (40.0-76.0); PLATELET 220 x1000/uL (130-400); RED BLOOD CELL COUNT 4.65 mill/uL (4.7-6.1); WHITE BLOOD COUNT 9.2 x1000/uL (4.5-11.0)
[2023-11-26 16:43] LABS: ALANINE AMINOTRANSFERASE 22 IU/L (10-49); ALBUMIN 4.4 g/dL (3.2-4.8); ASPARTATE AMINOTRANSFERASE 20 IU/L (<34); BILIRUBIN TOTAL 0.4 mg/dL (0.1-1.0); CALCIUM 9.2 mg/dL (8.7-10.4); CARBON DIOXIDE 22 mEq/L (21-32); CHLORIDE 104 mEq/L (98-107); GLUCOSE 150 mg/dL (70-105); POTASSIUM 3.7 mEq/L (3.5-5.1); PROTEIN TOTAL 7.1 g/dL (6.0-8.3); SODIUM 135 mEq/L (136-145); UREA NITROGEN BLOOD 22 mg/dL (9-23)
== END | disposition home or self-care (01) ==
LOC: LAB 15:48
PROVIDERS: ATTEND Internal Medicine Geriatric Medicine
DX: I10 Essential (primary) hypertension (principal); E11.59 Type 2 diabetes mellitus with other circulatory complications
CPT/HCPCS: 36415; 80053; 83036; 85025

== ENCOUNTER → 2023-12-22 | Outpatient (CLI) | payer BC ==
[2023-12-22 10:30] LABS: BASOPHILS % 0.4 % (0.0-2.0); EOSINOPHILS % 2.1 % (0.0-5.0); HEMATOCRIT. 42.3 % (42.0-52.0); HEMOGLOBIN. 14.1 g/dL (14.0-18.0); LYMPHOCYTES % 17.9 % (20.0-50.0); MEAN CORPUSCULAR HEMOGLOBIN 29.9 pg (28.0-32.0); MEAN CORPUSCULAR HGB CONC 33.2 g/dL (31.0-37.0); MEAN CORPUSCULAR VOLUME 90.1 fL (80.0-94.0); MEAN PLATELET VOLUME 8.6 fl (7.4-10.4); MONOCYTES % 6.7 % (2.0-8.0); NEUTROPHILS % 72.9 % (40.0-76.0); PLATELET 207 x1000/uL (130-400); RED CELL DISTRIBUTION WIDTH 13.7 % (11.6-14.6); WHITE BLOOD COUNT 8.4 x1000/uL (4.5-11.0)
[2023-12-22 11:05] LABS: ALANINE AMINOTRANSFERASE 21 IU/L (10-49); ALBUMIN 4.4 g/dL (3.2-4.8); ASPARTATE AMINOTRANSFERASE 18 IU/L (<34); BILIRUBIN TOTAL 0.4 mg/dL (0.1-1.0); CALCIUM 9.4 mg/dL (8.7-10.4); CARBON DIOXIDE 30 mEq/L (21-32); CHLORIDE 106 mEq/L (98-107); CHOLESTEROL 74 mg/dL (<200); GLUCOSE 98 mg/dL (70-105); HDL CHOLESTEROL 30 mg/dL (>55); LDL CHOLESTEROL 48 mg/dL (5-100); POTASSIUM 4.3 mEq/L (3.5-5.1); PROTEIN TOTAL 6.4 g/dL (6.0-8.3); SODIUM 140 mEq/L (136-145); TRIGLYCERIDE 107 mg/dL (0-150); UREA NITROGEN BLOOD 14 mg/dL (9-23)
== END | disposition home or self-care (01) ==
LOC: LAB 08:57
PROVIDERS: ATTEND Internal Medicine Endocrinology, Diabetes & Metabolism
DX: I10 Essential (primary) hypertension (principal); E78.5 Hyperlipidemia, unspecified; E11.9 Type 2 diabetes mellitus without complications
CPT/HCPCS: 36415; 80053; 80061; 83036; 85025

== ENCOUNTER → 2023-12-22 | Outpatient (CLI) | payer BC | END | disposition home or self-care (01) | LOC: RAD 08:42 | PROVIDERS: ATTEND Internal Medicine Geriatric Medicine | DX: M81.0 Age-related osteoporosis without current pathological fracture (principal); M85.9 Disorder of bone density and structure, unspecified | CPT/HCPCS: 77080; 93880 ==

== ENCOUNTER → 2024-03-01 | Outpatient (CLI) | payer BC ==
[2024-03-01 14:08] LABS: BASOPHILS % 0.6 % (0.0-2.0); EOSINOPHILS % 2.2 % (0.0-5.0); HEMOGLOBIN. 15.1 g/dL (14.0-18.0); MEAN CORPUSCULAR HEMOGLOBIN 29.8 pg (28.0-32.0); MEAN CORPUSCULAR HGB CONC 32.8 g/dL (31.0-37.0); MEAN CORPUSCULAR VOLUME 90.9 fL (80.0-94.0); MEAN PLATELET VOLUME 8.9 fl (7.4-10.4); MONOCYTES % 5.3 % (2.0-8.0); NEUTROPHILS % 70.9 % (40.0-76.0); PLATELET 227 x1000/uL (130-400); RED BLOOD CELL COUNT 5.06 mill/uL (4.7-6.1); RED CELL DISTRIBUTION WIDTH 14.3 % (11.6-14.6); WHITE BLOOD COUNT 8.8 x1000/uL (4.5-11.0)
[2024-03-01 14:46] LABS: CLARITY URINE CLEAR (CLEAR); COLOR URINE YELLOW (YELLOW); GLUCOSE URINE 3+ (NEGATIVE); KETONES URINE NEGATIVE (NEGATIVE); LEUKOCYTE ESTERASE URINE NEGATIVE (NEGATIVE); NITRITE URINE NEGATIVE (NEGATIVE); OCCULT BLOOD URINE NEGATIVE (NEGATIVE); PH URINE 5.5 (4.5-8.0); PROTEIN URINE NEGATIVE (NEGATIVE); UROBILINOGEN URINE 0.2 E.U./dL (0.2-1.0)
[2024-03-01 15:09] LABS: BACTERIA URINE NONE SEEN; RBC URINE NONE SEEN /hpf (0-2); SQUAMOUS EPITHELIAL CELL URINE NONE SEEN /lpf (RARE/1+); WBC URINE 0-2 /hpf (0-2); YEAST URINE NONE SEEN
[2024-03-01 15:24] LABS: ALANINE AMINOTRANSFERASE 19 IU/L (10-49); ALBUMIN 4.7 g/dL (3.2-4.8); ASPARTATE AMINOTRANSFERASE 19 IU/L (<34); BILIRUBIN TOTAL 0.6 mg/dL (0.1-1.0); CALCIUM 9.4 mg/dL (8.7-10.4); CARBON DIOXIDE 31 mEq/L (21-32); CHLORIDE 104 mEq/L (98-107); CHOLESTEROL 133 mg/dL (<200); CREATININE 0.9 mg/dL (0.6-1.3); GLUCOSE 96 mg/dL (70-105); HDL CHOLESTEROL 43 mg/dL (>55); LDL CHOLESTEROL 72 mg/dL (5-100); PROTEIN TOTAL 7.1 g/dL (6.0-8.3); SODIUM 141 mEq/L (136-145); THYROID STIMULATING HORMONE 2.01 uIU/mL (0.55-4.78); TRIGLYCERIDE 173 mg/dL (0-150); UREA NITROGEN BLOOD 12 mg/dL (9-23)
[2024-03-01 15:25] LABS: VITAMIN B12 SERUM 425 pg/mL (211-911)
== END | disposition home or self-care (01) ==
LOC: LAB 12:27
PROVIDERS: ATTEND Specialist
DX: I11.9 Hypertensive heart disease without heart failure (principal); E78.2 Mixed hyperlipidemia; R94.31 Abnormal electrocardiogram [ECG] [EKG]
CPT/HCPCS: 36415; 80053; 80061; 81003; 82306; 82607; 83036; 84439; 84443; 84481; 85025

== ENCOUNTER → 2024-03-01 | Outpatient (CLI) | payer BC | END | disposition home or self-care (01) | LOC: MRI 12:14 | PROVIDERS: ATTEND Internal Medicine Geriatric Medicine | DX: S83.8X1A Sprain of other specified parts of right knee, initial encounter (principal); M22.41 Chondromalacia patellae, right knee; X58.XXXA Exposure to other specified factors, initial encounter; Y93.89 Activity, other specified; Y92.89 Other specified places as the place of occurrence of the external cause; Y99.8 Other external cause status | CPT/HCPCS: 73721 ==

== ENCOUNTER → 2024-03-09 | Outpatient (CLI) | payer BC | END | disposition home or self-care (01) | LOC: CT 09:47 | PROVIDERS: ATTEND Specialist | DX: Z13.6 Encounter for screening for cardiovascular disorders (principal); I10 Essential (primary) hypertension; E78.2 Mixed hyperlipidemia; E11.9 Type 2 diabetes mellitus without complications; I25.10 Atherosclerotic heart disease of native coronary artery without angina pectoris | CPT/HCPCS: 75571 ==

== ENCOUNTER → 2024-03-11 | Outpatient (CLI) | payer BC | END | disposition home or self-care (01) | LOC: CARD 08:55 | PROVIDERS: ATTEND Internal Medicine Geriatric Medicine | DX: I34.81 Nonrheumatic mitral (valve) annulus calcification (principal); I10 Essential (primary) hypertension; R94.31 Abnormal electrocardiogram [ECG] [EKG]; R60.9 Edema, unspecified | CPT/HCPCS: 93306 ==

== ENCOUNTER → 2024-05-05 | Outpatient (CLI) | payer BC ==
[2024-05-05 10:39] LABS: BASOPHILS % 0.5 % (0.0-2.0); EOSINOPHILS % 2.7 % (0.0-5.0); HEMATOCRIT. 40.4 % (42.0-52.0); HEMOGLOBIN. 13.8 g/dL (14.0-18.0); LYMPHOCYTES % 19.6 % (20.0-50.0); MEAN CORPUSCULAR HEMOGLOBIN 30.8 pg (28.0-32.0); MEAN CORPUSCULAR HGB CONC 34.3 g/dL (31.0-37.0); MEAN CORPUSCULAR VOLUME 89.9 fL (80.0-94.0); MEAN PLATELET VOLUME 8.2 fl (7.4-10.4); MONOCYTES % 7.7 % (2.0-8.0); NEUTROPHILS % 69.5 % (40.0-76.0); PLATELET 208 x1000/uL (130-400); RED BLOOD CELL COUNT 4.49 mill/uL (4.7-6.1); RED CELL DISTRIBUTION WIDTH 13.9 % (11.6-14.6); WHITE BLOOD COUNT 6.9 x1000/uL (4.5-11.0)
[2024-05-05 10:53] LABS: CARBON DIOXIDE 26 mEq/L (21-32); CHLORIDE 104 mEq/L (98-107); POTASSIUM 4.2 mEq/L (3.5-5.1); SODIUM 138 mEq/L (136-145)
[2024-05-05 10:54] LABS: CALCIUM 9.8 mg/dL (8.7-10.4)
[2024-05-05 10:58] LABS: GLUCOSE 108 mg/dL (70-105)
[2024-05-05 10:59] LABS: LDL CHOLESTEROL 54 mg/dL (5-100); TRIGLYCERIDE 106 mg/dL (0-150); UREA NITROGEN BLOOD 14 mg/dL (9-23)
[2024-05-05 11:00] LABS: ALANINE AMINOTRANSFERASE 31 IU/L (10-49); ALBUMIN 4.3 g/dL (3.2-4.8); ASPARTATE AMINOTRANSFERASE 26 IU/L (<34); CHOLESTEROL 114 mg/dL (<200); HDL CHOLESTEROL 42 mg/dL (>55)
[2024-05-05 11:01] LABS: BILIRUBIN TOTAL 0.6 mg/dL (0.1-1.0); PROTEIN TOTAL 6.6 g/dL (6.0-8.3)
[2024-05-05 11:04] LABS: THYROID STIMULATING HORMONE 1.38 uIU/mL (0.55-4.78)
== END | disposition home or self-care (01) ==
LOC: LAB 09:47
PROVIDERS: ATTEND Internal Medicine Endocrinology, Diabetes & Metabolism
DX: I10 Essential (primary) hypertension (principal); E11.9 Type 2 diabetes mellitus without complications; E55.9 Vitamin D deficiency, unspecified; E78.5 Hyperlipidemia, unspecified
CPT/HCPCS: 36415; 80053; 80061; 82043; 82570; 83036; 84443; 85025

== ENCOUNTER → 2024-06-27 | Outpatient (CLI) | payer BC ==
[~2024-06-27] VITALS: Ht 179.1 cm; Wt 108.9 kg
[~2024-06-27] MED LIST changes: +ASCO-316 PO; +ASPI-986 PO; +BUPR450T3 PO; +CA C1TAB87 PO; +CHOL200059 PO; +DAPA10TA PO; +DEXT15TA PO; +GABA-290 PO; +INSLIS SUBCUT; +LISI10TA26 PO; +PROP10TA10 PO; +ROSU20TA2 PO; +UBID200C17 PO; +VIT1CAPS47 PO; +VOLTAREN GEL TOP; +[UNRECOGNIZED DRUG - CODE] PO
[2024-06-27 15:13] LABS: BASOPHILS % 0.5 % (0.0-2.0); EOSINOPHILS % 1.3 % (0.0-5.0); HEMATOCRIT. 45.1 % (42.0-52.0); HEMOGLOBIN. 14.9 g/dL (14.0-18.0); LYMPHOCYTES % 21.2 % (20.0-50.0); MEAN CORPUSCULAR HEMOGLOBIN 30.3 pg (28.0-32.0); MEAN PLATELET VOLUME 8.3 fl (7.4-10.4); MONOCYTES % 6.5 % (2.0-8.0); NEUTROPHILS % 70.5 % (40.0-76.0); PLATELET 231 x1000/uL (130-400); RED CELL DISTRIBUTION WIDTH 13.5 % (11.6-14.6); WHITE BLOOD COUNT 7.3 x1000/uL (4.5-11.0)
[2024-06-27 15:17] LABS: CLARITY URINE CLEAR (CLEAR); COLOR URINE YELLOW (YELLOW); GLUCOSE URINE NEGATIVE (NEGATIVE); KETONES URINE NEGATIVE (NEGATIVE); LEUKOCYTE ESTERASE URINE NEGATIVE (NEGATIVE); NITRITE URINE NEGATIVE (NEGATIVE); OCCULT BLOOD URINE NEGATIVE (NEGATIVE); PH URINE 5.5 (4.5-8.0); PROTEIN URINE NEGATIVE (NEGATIVE); SPECIFIC GRAVITY URINE 1.009 (1.005-1.030); UROBILINOGEN URINE 0.2 E.U./dL (0.2-1.0)
[2024-06-27 15:18] LABS: CARBON DIOXIDE 26 mEq/L (21-32); CHLORIDE 105 mEq/L (98-107); POTASSIUM 3.8 mEq/L (3.5-5.1); SODIUM 139 mEq/L (136-145)
[2024-06-27 15:19] LABS: CALCIUM 9.9 mg/dL (8.7-10.4)
[2024-06-27 15:23] LABS: PARTIAL THROMBOPLASTIN TIME 28.5 sec (23.4-31.0); PROTHROMBIN TIME 10.8 sec (9.6-11.0)
[2024-06-27 15:24] LABS: CREATININE 0.9 mg/dL (0.6-1.3); GLUCOSE 88 mg/dL (70-105); TRIGLYCERIDE 136 mg/dL (0-150); UREA NITROGEN BLOOD 14 mg/dL (9-23)
[2024-06-27 15:25] LABS: LDL CHOLESTEROL 69 mg/dL (5-100)
[2024-06-27 15:26] LABS: ALANINE AMINOTRANSFERASE 25 IU/L (10-49); ALBUMIN 4.8 g/dL (3.2-4.8); ASPARTATE AMINOTRANSFERASE 18 IU/L (<34); BILIRUBIN TOTAL 0.7 mg/dL (0.1-1.0); CHOLESTEROL 123 mg/dL (<200); HDL CHOLESTEROL 37 mg/dL (>55); PROTEIN TOTAL 7.1 g/dL (6.0-8.3)
== END | disposition home or self-care (01) ==
LOC: RAD 14:24
PROVIDERS: ATTEND Internal Medicine Geriatric Medicine
DX: Z01.818 Encounter for other preprocedural examination (principal); J44.9 Chronic obstructive pulmonary disease, unspecified; I10 Essential (primary) hypertension; E78.5 Hyperlipidemia, unspecified; E11.59 Type 2 diabetes mellitus with other circulatory complications
CPT/HCPCS: 36415; 71046; 80053; 80061; 81003; 82043; 82570; 83036; 85025

== ENCOUNTER → 2024-07-01 | Day surgery (SDC) | payer BC ==
[~2024-07-01] VITALS: Ht 179.1 cm; Wt 108.9 kg
[~2024-07-01] MED LIST changes: -ABIL5 PO; -ACET-2708 MT; -ASPI-1497 PO; -BACL-141 MT; +BUPIVACAINE HCL/PF 0.5% (5MG/ML) 10ML ONE; +CEFAZOLIN SODIUM 1000MG/VIAL ONE; -CRES10 PO; -CYCL10TA21 MT; +DEXAMETHASONE 4MG/ML 1ML VIAL ONE; -DOXE150C PO; +EPINEPHRINE 1:1000 1 MG/ML AMP ONE; -GABA-529 PO; +GLYCOPYRROLATE 0.2 MG/ML 2ML VIAL ONE; +HYDROCODONE/ACETAMINOPHEN 5/325MG TABLET PO PRN; +HYDROMORPHONE HCL/PF 2MG/ML INJ IV PRN; +INSHUMSS SUBCUT; -INSU100I28 SQ; -LIDO700A15 TP; +LIDOCAINE HCL/EPINEPHRINE 1%-EPI 1:100,000 20 ML VIAL ONE; -LORA2TAB95 MT; +MEPERIDINE HCL/PF 25MG/ML CPJ IV PRN; +MORPHINE SULFATE 4 MG/ML INJ (FOR IV/IM USE) IV PRN; +NALOXONE HCL 0.4MG/ML VIAL IV PRN; -NEED-401 MC; +NEOSTIGMINE METHYLSULFATE 1MG/ML 10 ML VIAL ONE; +ONDANSETRON HCL 4MG/2ML INJ IV PRN; +ONDANSETRON HCL 4MG/2ML INJ ONE; +OXYC-100 MT; +PHENYLEPHRINE HCL 10MG/ML 1ML IV ONE; +POLYMYXIN B SULFATE 500000 UNITS/VIAL ONE; +PROPOFOL 200MG/20ML VIAL IV ONE; +ROCURONIUM BROMIDE 10MG/ML VIAL 5ML IV ONE; +SKIN ADHESIVE 0.7 GM EA TOP ONE; +SUCCINYLCHOLINE CHLORIDE 200MG/10ML IV ONE; -TADA5TAB PO; +TAMS-11 PO; -TRAM50TA3 MT; -TRAM50TA3 PO; +TUMERIC PO; +VANCOMYCIN HCL 1GM VIAL ONE
[2024-07-01] MEDS: SODIUM CHLORIDE 0.9% 1,000 ML IV SCH (07:05)
== END | disposition home or self-care (01) ==
LOC: OR 05:10
DX: M75.101 Unspecified rotator cuff tear or rupture of right shoulder, not specified as traumatic (principal); S46.211A Strain of muscle, fascia and tendon of other parts of biceps, right arm, initial encounter; M94.211 Chondromalacia, right shoulder; Z79.82 Long term (current) use of aspirin; Z79.4 Long term (current) use of insulin; Z79.899 Other long term (current) drug therapy; Z88.0 Allergy status to penicillin; Z88.8 Allergy status to other drugs, medicaments and biological substances; Z98.890 Other specified postprocedural states; X58.XXXA Exposure to other specified factors, initial encounter; Y93.89 Activity, other specified; Y92.89 Other specified places as the place of occurrence of the external cause; Y99.8 Other external cause status
CPT/HCPCS: 23430; 29827; 29826; 82962; 88304; J3490 ×6; J0690; J1100; J2405; J2704; J0330; J3370; J2710; C1713

== ENCOUNTER → 2024-08-04 | Outpatient (CLI) | payer BC ==
[~2024-08-04] MED LIST changes: -BUPIVACAINE HCL/PF 0.5% (5MG/ML) 10ML ONE; -BUPR450T3 PO; +BUPR450T5 PO; -CEFAZOLIN SODIUM 1000MG/VIAL ONE; -DEXAMETHASONE 4MG/ML 1ML VIAL ONE; -EPINEPHRINE 1:1000 1 MG/ML AMP ONE; -GLYCOPYRROLATE 0.2 MG/ML 2ML VIAL ONE; -HYDROCODONE/ACETAMINOPHEN 5/325MG TABLET PO PRN; -HYDROMORPHONE HCL/PF 2MG/ML INJ IV PRN; -LIDOCAINE HCL/EPINEPHRINE 1%-EPI 1:100,000 20 ML VIAL ONE; -MEPERIDINE HCL/PF 25MG/ML CPJ IV PRN; -MORPHINE SULFATE 4 MG/ML INJ (FOR IV/IM USE) IV PRN; -NALOXONE HCL 0.4MG/ML VIAL IV PRN; -NEOSTIGMINE METHYLSULFATE 1MG/ML 10 ML VIAL ONE; -ONDANSETRON HCL 4MG/2ML INJ IV PRN; -ONDANSETRON HCL 4MG/2ML INJ ONE; -PHENYLEPHRINE HCL 10MG/ML 1ML IV ONE; -POLYMYXIN B SULFATE 500000 UNITS/VIAL ONE; -PROPOFOL 200MG/20ML VIAL IV ONE; -ROCURONIUM BROMIDE 10MG/ML VIAL 5ML IV ONE; -SKIN ADHESIVE 0.7 GM EA TOP ONE; -SUCCINYLCHOLINE CHLORIDE 200MG/10ML IV ONE; -TAMS0.4C31 PO; -VANCOMYCIN HCL 1GM VIAL ONE
[2024-08-04 15:22] LABS: BASOPHILS % 0.5 % (0.0-2.0); EOSINOPHILS % 2.8 % (0.0-5.0); HEMATOCRIT. 42.9 % (42.0-52.0); HEMOGLOBIN. 14.3 g/dL (14.0-18.0); LYMPHOCYTES % 23.7 % (20.0-50.0); MEAN CORPUSCULAR HEMOGLOBIN 30.4 pg (28.0-32.0); MEAN CORPUSCULAR HGB CONC 33.3 g/dL (31.0-37.0); MEAN CORPUSCULAR VOLUME 91.4 fL (80.0-94.0); MEAN PLATELET VOLUME 8.6 fl (7.4-10.4); MONOCYTES % 6.2 % (2.0-8.0); NEUTROPHILS % 66.8 % (40.0-76.0); PLATELET 222 x1000/uL (130-400); RED BLOOD CELL COUNT 4.69 mill/uL (4.7-6.1); RED CELL DISTRIBUTION WIDTH 13.7 % (11.6-14.6); WHITE BLOOD COUNT 7.8 x1000/uL (4.5-11.0)
[2024-08-04 15:31] LABS: CHLORIDE 107 mEq/L (98-107); POTASSIUM 4.3 mEq/L (3.5-5.1); SODIUM 139 mEq/L (136-145)
[2024-08-04 15:32] LABS: CARBON DIOXIDE 24 mEq/L (21-32)
[2024-08-04 15:33] LABS: CALCIUM 9.7 mg/dL (8.7-10.4)
[2024-08-04 15:37] LABS: GLUCOSE 103 mg/dL (70-105)
[2024-08-04 15:38] LABS: LDL CHOLESTEROL 92 mg/dL (5-100); TRIGLYCERIDE 256 mg/dL (0-150); UREA NITROGEN BLOOD 11 mg/dL (9-23)
[2024-08-04 15:39] LABS: ALANINE AMINOTRANSFERASE 20 IU/L (10-49); ALBUMIN 4.8 g/dL (3.2-4.8); ASPARTATE AMINOTRANSFERASE 16 IU/L (<34); CHOLESTEROL 148 mg/dL (<200); HDL CHOLESTEROL 39 mg/dL (>55)
[2024-08-04 15:40] LABS: BILIRUBIN TOTAL 0.4 mg/dL (0.1-1.0); PROTEIN TOTAL 7.2 g/dL (6.0-8.3)
[2024-08-04 15:43] LABS: T4 FREE 1.06 ng/dL (0.89-1.76); THYROID STIMULATING HORMONE 1.59 uIU/mL (0.55-4.78)
[2024-08-06 13:08] LABS: *CREATININE RANDOM URINE 17.3 mg/dL (Not Estab.); MICROALBUMIN RANDOM URINE <3.0 ug/mL (Not Estab.); MICROALBUMIN/CREATININE RATIO <17 mg/g creat (0-29)
== END | disposition home or self-care (01) ==
LOC: LAB 14:38
PROVIDERS: ATTEND Internal Medicine Endocrinology, Diabetes & Metabolism
DX: I10 Essential (primary) hypertension (principal); E11.9 Type 2 diabetes mellitus without complications; E78.5 Hyperlipidemia, unspecified; E55.9 Vitamin D deficiency, unspecified
CPT/HCPCS: 36415; 80053; 80061; 82043; 82306; 82533; 82570; 83036; 84439; 84443; 85025

== ENCOUNTER → 2024-09-20 | Outpatient (CLI) | payer BC ==
[2024-09-20 12:12] LABS: CLARITY URINE CLEAR (CLEAR); COLOR URINE YELLOW (YELLOW); GLUCOSE URINE 3+ (NEGATIVE); KETONES URINE NEGATIVE (NEGATIVE); LEUKOCYTE ESTERASE URINE NEGATIVE (NEGATIVE); NITRITE URINE NEGATIVE (NEGATIVE); OCCULT BLOOD URINE NEGATIVE (NEGATIVE); PROTEIN URINE NEGATIVE (NEGATIVE); SPECIFIC GRAVITY URINE 1.016 (1.005-1.030); UROBILINOGEN URINE 0.2 E.U./dL (0.2-1.0)
[2024-09-20 12:41] LABS: BACTERIA URINE NONE SEEN; RBC URINE NONE SEEN /hpf (0-2); SQUAMOUS EPITHELIAL CELL URINE NONE SEEN /lpf (RARE/1+); WBC URINE 0-2 /hpf (0-2); YEAST URINE NONE SEEN
== END | disposition home or self-care (01) ==
LOC: LAB 11:34
PROVIDERS: ATTEND Internal Medicine Geriatric Medicine
DX: N32.81 Overactive bladder (principal)
CPT/HCPCS: 81003

== ENCOUNTER → 2024-09-22 | Outpatient (CLI) | payer BC | END | disposition home or self-care (01) | LOC: PF 11:17 | PROVIDERS: ATTEND Internal Medicine Geriatric Medicine | DX: R06.09 Other forms of dyspnea (principal); Z20.822 Contact with and (suspected) exposure to COVID-19 | CPT/HCPCS: 87426; 94060; 94727; 94729 ==

== ENCOUNTER → 2024-12-28 | Outpatient (CLI) | payer BC | END | disposition home or self-care (01) | LOC: MRI 09:42 | DX: M75.122 Complete rotator cuff tear or rupture of left shoulder, not specified as traumatic (principal); M19.012 Primary osteoarthritis, left shoulder; M25.412 Effusion, left shoulder; M67.814 Other specified disorders of tendon, left shoulder | CPT/HCPCS: 73221 ==

== ENCOUNTER → 2025-01-18 | Outpatient (CLI) | payer BC ==
[2025-01-18 17:28] LABS: BASOPHILS % 0.6 % (0.0-2.0); EOSINOPHILS % 2.6 % (0.0-5.0); HEMATOCRIT. 43.2 % (42.0-52.0); HEMOGLOBIN. 14.6 g/dL (14.0-18.0); LYMPHOCYTES % 25.4 % (20.0-50.0); MEAN CORPUSCULAR HEMOGLOBIN 31.1 pg (28.0-32.0); MEAN CORPUSCULAR HGB CONC 33.9 g/dL (31.0-37.0); MEAN CORPUSCULAR VOLUME 91.8 fL (80.0-94.0); MEAN PLATELET VOLUME 8.6 fl (7.4-10.4); MONOCYTES % 6.7 % (2.0-8.0); NEUTROPHILS % 64.7 % (40.0-76.0); PLATELET 229 x1000/uL (130-400); RED CELL DISTRIBUTION WIDTH 13.6 % (11.6-14.6); WHITE BLOOD COUNT 8.4 x1000/uL (4.5-11.0)
[2025-01-18 17:33] LABS: CARBON DIOXIDE 25 mEq/L (21-32); CHLORIDE 106 mEq/L (98-107); POTASSIUM 4.1 mEq/L (3.5-5.1); SODIUM 141 mEq/L (136-145)
[2025-01-18 17:34] LABS: CALCIUM 9.7 mg/dL (8.7-10.4)
[2025-01-18 17:39] LABS: GLUCOSE 86 mg/dL (70-105); TRIGLYCERIDE 296 mg/dL (0-150); UREA NITROGEN BLOOD 15 mg/dL (9-23)
[2025-01-18 17:40] LABS: ALANINE AMINOTRANSFERASE 28 IU/L (10-49); ALBUMIN 4.7 g/dL (3.2-4.8); ASPARTATE AMINOTRANSFERASE 20 IU/L (<34); LDL CHOLESTEROL 81 mg/dL (5-100)
[2025-01-18 17:41] LABS: BILIRUBIN TOTAL 0.7 mg/dL (0.1-1.0); CHOLESTEROL 151 mg/dL (<200); HDL CHOLESTEROL 34 mg/dL (>55)
[2025-01-18 17:43] LABS: T4 FREE 0.98 ng/dL (0.89-1.76); THYROID STIMULATING HORMONE 2.39 uIU/mL (0.55-4.78)
[2025-01-21 04:07] LABS: *CREATININE RANDOM URINE 27.6 mg/dL (Not Estab.); MICROALBUMIN RANDOM URINE 7.7 ug/mL (Not Estab.)
== END | disposition home or self-care (01) ==
LOC: LAB 16:44
PROVIDERS: ATTEND Internal Medicine Endocrinology, Diabetes & Metabolism
DX: I10 Essential (primary) hypertension (principal); E11.9 Type 2 diabetes mellitus without complications; E55.9 Vitamin D deficiency, unspecified; E78.5 Hyperlipidemia, unspecified
CPT/HCPCS: 36415; 80053; 80061; 82043; 82306; 82570; 83036; 84439; 84443; 85025

== ENCOUNTER 2025-03-16 11:03 | Emergency (ER) | payer BC ==
[~2025-03-16] VITALS: Ht 177.8 cm; Wt 95.3 kg
[~2025-03-16 11:03] MED LIST changes: -TAMS-11 PO; +TAMS-54 PO
[2025-03-16 11:10] VITALS: BP 116/75; TEMP 36.7; O2SAT 98
[2025-03-16 11:12] VITALS: PULSE 83; RESP 20; O2SAT 99
[2025-03-16] MEDS: TRAMADOL 50MG TABLET PO ONE (13:11)
[2025-03-16] MEDS: LIDOCAINE 5% PATCH TOP SCH (13:11)
[2025-03-16] MEDS ORDERED: TRAM50TA3 MT (13:23)
[2025-03-16] MEDS ORDERED: LIDO700A30 TP (13:23)
[2025-03-16] MEDS ORDERED: CYCL10TA21 MT (13:23)
== END 2025-03-16 13:36 | disposition home or self-care (01) ==
LOC: ER 11:03
DX: M62.830 Muscle spasm of back (principal); E11.9 Type 2 diabetes mellitus without complications; Z88.0 Allergy status to penicillin; Z79.4 Long term (current) use of insulin; Z79.82 Long term (current) use of aspirin; Z79.899 Other long term (current) drug therapy; Z90.49 Acquired absence of other specified parts of digestive tract
CPT/HCPCS: 99283; Z7610

== ENCOUNTER → 2025-07-14 | Outpatient (CLI) | payer BC ==
[~2025-07-14] MED LIST changes: +CYCL10TA21 MT; +LIDO700A30 TP; +TRAM50TA3 MT
[2025-07-14 13:14] LABS: BASOPHILS % 0.4 % (0.0-2.0); EOSINOPHILS % 1.2 % (0.0-5.0); HEMATOCRIT. 45.0 % (42.0-52.0); HEMOGLOBIN. 14.6 g/dL (14.0-18.0); LYMPHOCYTES % 21.4 % (20.0-50.0); MEAN PLATELET VOLUME 8.5 fl (7.4-10.4); MONOCYTES % 6.3 % (2.0-8.0); NEUTROPHILS % 70.7 % (40.0-76.0); PLATELET 235 x1000/uL (130-400); RED BLOOD CELL COUNT 4.92 mill/uL (4.7-6.1); RED CELL DISTRIBUTION WIDTH 13.8 % (11.6-14.6)
[2025-07-14 13:28] LABS: CREATININE 1.1 mg/dL (0.6-1.3); TRIGLYCERIDE 189 mg/dL (0-150); UREA NITROGEN BLOOD 15 mg/dL (9-23)
[2025-07-14 13:29] LABS: ASPARTATE AMINOTRANSFERASE 19 IU/L (<34); LDL CHOLESTEROL 75 mg/dL (5-100)
[2025-07-14 13:30] LABS: BILIRUBIN TOTAL 0.6 mg/dL (0.1-1.0); PROTEIN TOTAL 7.2 g/dL (6.0-8.3)
[2025-07-14 13:31] LABS: T4 FREE 1.15 ng/dL (0.89-1.76)
[2025-07-17 14:07] LABS: *CREATININE RANDOM URINE 43.4 mg/dL (Not Estab.); MICROALBUMIN RANDOM URINE <3.0 ug/mL (Not Estab.); MICROALBUMIN/CREATININE RATIO <7 mg/g creat (0-29)
== END | disposition home or self-care (01) ==
LOC: LAB 12:16
PROVIDERS: ATTEND Internal Medicine Endocrinology, Diabetes & Metabolism
DX: I10 Essential (primary) hypertension (principal); E11.9 Type 2 diabetes mellitus without complications; E55.9 Vitamin D deficiency, unspecified; E78.5 Hyperlipidemia, unspecified
CPT/HCPCS: 36415; 80053; 80061; 82043; 82306; 82570; 83036; 84439; 84443; 85025

== ENCOUNTER → 2025-08-28 | Outpatient (CLI) | payer BC ==
[2025-08-28 15:28] LABS: BASOPHILS % 0.7 % (0.0-2.0); EOSINOPHILS % 2.9 % (0.0-5.0); HEMATOCRIT. 40.9 % (42.0-52.0); HEMOGLOBIN. 14.0 g/dL (14.0-18.0); LYMPHOCYTES % 25.4 % (20.0-50.0); MEAN PLATELET VOLUME 8.8 fl (7.4-10.4); MONOCYTES % 6.9 % (2.0-8.0); NEUTROPHILS % 64.1 % (40.0-76.0); PLATELET 246 x1000/uL (130-400); RED BLOOD CELL COUNT 4.57 mill/uL (4.7-6.1); RED CELL DISTRIBUTION WIDTH 13.6 % (11.6-14.6)
[2025-08-28 15:43] LABS: CREATININE 1.0 mg/dL (0.6-1.3)
[2025-08-28 15:44] LABS: TRIGLYCERIDE 185 mg/dL (0-150); UREA NITROGEN BLOOD 12 mg/dL (9-23)
[2025-08-28 15:45] LABS: LDL CHOLESTEROL 80 mg/dL (5-100)
[2025-08-28 15:46] LABS: ASPARTATE AMINOTRANSFERASE 22 IU/L (<34); BILIRUBIN TOTAL 0.7 mg/dL (0.1-1.0); PROTEIN TOTAL 6.8 g/dL (6.0-8.3)
[2025-08-28 15:48] LABS: T4 FREE 1.01 ng/dL (0.89-1.76)
[2025-08-28 21:13] LABS: VITAMIN B12 SERUM 385 pg/mL (211-911)
[2025-08-28 21:46] LABS: FOLIC ACID (FOLATE) SERUM > 20.00 ng/mL (>5.38)
[2025-08-30 09:10] LABS: FOLICLE STIMULATING HORMONE 20.5 mIU/mL (1.5-12.4); LUTEINIZING HORMONE 9.5 mIU/mL (1.7-8.6); PROLACTIN 14.7 ng/mL (3.6-25.2); PROSTATE SPECIFIC AG TOTAL 1.1 ng/mL (0.0-4.0)
[2025-08-30 11:24] LABS: CARCINOEMBRYONIC AG - SEND OUT 1.8 ng/mL (0.0-4.7); VITAMIN D 25-OH 29.0 ng/mL (30.0-100.0)
[2025-08-30 13:08] LABS: *CREATININE RANDOM URINE 76.8 mg/dL (Not Estab.); MICROALBUMIN RANDOM URINE 9.5 ug/mL (Not Estab.); MICROALBUMIN/CREATININE RATIO 12.0 mg/g creat (0-29)
== END | disposition home or self-care (01) ==
LOC: LAB 14:20
PROVIDERS: ATTEND Internal Medicine Endocrinology, Diabetes & Metabolism
DX: I10 Essential (primary) hypertension (principal); E11.9 Type 2 diabetes mellitus without complications; E78.5 Hyperlipidemia, unspecified; E55.9 Vitamin D deficiency, unspecified; Z79.899 Other long term (current) drug therapy
CPT/HCPCS: 36415; 80053; 80061; 82043; 82306; 82378; 82570; 82607; 82746; 83001; 83002; 83036; 83540; 83550; 84146; 84153; 84402; 84403; 84439; 84443; 85025

== ENCOUNTER → 2025-10-06 | Outpatient (CLI) | payer BC | END | disposition home or self-care (01) | LOC: PF 10:36 | PROVIDERS: ATTEND Internal Medicine Geriatric Medicine | DX: J44.9 Chronic obstructive pulmonary disease, unspecified (principal) | CPT/HCPCS: 94727; 94060; 94729; Z7610 ×2 ==

== ENCOUNTER 2025-11-19 07:25 | Inpatient (IN) | payer BC ==
[~2025-11-19] VITALS: Ht 188 cm; Wt 117.0 kg
[2025-11-19] VITALS (7 sets, daily range): BP systolic 123–160; BP diastolic 69–85; PULSE 69–82; RESP 17–25; TEMP 36.6–36.8; O2SAT 93–100
[2025-11-19 09:04] LABS: BASOPHILS % 0.3 % (0.0-2.0); EOSINOPHILS % 2.3 % (0.0-5.0); HEMATOCRIT. 38.8 % (42.0-52.0); HEMOGLOBIN. 13.0 g/dL (14.0-18.0); LYMPHOCYTES % 15.8 % (20.0-50.0); MEAN PLATELET VOLUME 8.6 fl (7.4-10.4); MONOCYTES % 7.3 % (2.0-8.0); NEUTROPHILS % 74.3 % (40.0-76.0); PLATELET 191 x1000/uL (130-400); RED BLOOD CELL COUNT 4.29 mill/uL (4.7-6.1); RED CELL DISTRIBUTION WIDTH 13.3 % (11.6-14.6)
[2025-11-19 09:19] LABS: CREATININE 1.0 mg/dL (0.6-1.3); TROPONIN I HIGH SENSITIVITY 5 ng/L (3.0-53)
[2025-11-19 09:20] LABS: UREA NITROGEN BLOOD 14 mg/dL (9-23)
[2025-11-19] MEDS: SODIUM CHLORIDE 0.9% (SEPSIS BOLUS) IV ONE (09:53)
[2025-11-19] MEDS: PIPERACILLIN/TAZO 3.375G/50ML 50 ML IV ONE (10:02)
[2025-11-19] MEDS: VANCOMYCIN 1G PREMIX 200 ML IV ONE (10:33)
[2025-11-19 11:07] LABS: PROTEIN TOTAL 6.3 g/dL (6.0-8.3)
[2025-11-19 11:09] LABS: ASPARTATE AMINOTRANSFERASE 21 IU/L (<34); BILIRUBIN DIRECT 0.1 mg/dL (<=3.0); BILIRUBIN TOTAL 0.4 mg/dL (0.1-1.0)
[2025-11-19 11:15] LABS: INR 1.0
[2025-11-19 12:35] LABS: CLARITY URINE CLEAR (CLEAR); COLOR URINE YELLOW (YELLOW); GLUCOSE URINE 2+ (NEGATIVE); KETONES URINE NEGATIVE (NEGATIVE); LEUKOCYTE ESTERASE URINE NEGATIVE (NEGATIVE); NITRITE URINE NEGATIVE (NEGATIVE); OCCULT BLOOD URINE NEGATIVE (NEGATIVE); PH URINE 5.5 (4.5-8.0); PROTEIN URINE NEGATIVE (NEGATIVE); SPECIFIC GRAVITY URINE 1.012 (1.005-1.030); UROBILINOGEN URINE 0.2 E.U./dL (0.2-1.0)
[2025-11-19 12:45] LABS: BACTERIA URINE NONE SEEN; RBC URINE 0-2 /hpf (0-2); SQUAMOUS EPITHELIAL CELL URINE RARE /lpf (RARE/1+); WBC URINE 0-2 /hpf (0-2); YEAST URINE NONE SEEN
[2025-11-19] MEDS ORDERED: ONDANSETRON HCL 4MG/2ML INJ IV PRN (15:30)
[2025-11-19] MEDS ORDERED: GUAIFENESIN 200MG/10ML SUGAR FREE UDC PO PRN (15:30)
[2025-11-19] MEDS ORDERED: ACETAMINOPHEN 325MG TABLET PO PRN (15:30)
[2025-11-19] MEDS ORDERED: NA PHOS,M-B/NA PHOS,DI-BA ENEMA 118ML PR PRN (15:30)
[2025-11-19] MEDS ORDERED: DOCUSATE SODIUM 100MG CAPSULE PO PRN (15:30)
[2025-11-19] MEDS ORDERED: DIPHENHYDRAMINE 50MG/ML VIAL IV PRN (15:30)
[2025-11-19] MEDS ORDERED: DEXTROSE 50% WATER 50ML SYRINGE IV PRN (15:45)
[2025-11-19] MEDS: DEXT 5%/0.45% NACL 1000ML 1,000 ML IV SCH (16:17)
[2025-11-19] MEDS: BLOOD SUGAR DIAGNOSTIC STRIP TEST SCH (17:08)
[2025-11-19] MEDS: INSULIN LISPRO 100 UNITS/ML SUBCUT SCH (17:08)
[2025-11-19] MEDS: ENOXAPARIN 40MG/0.4ML SYR SUBCUT SCH (17:16)
[2025-11-19] MEDS: CLONIDINE 0.1MG TABLET PO PRN (17:16)
[2025-11-19 19:57] LABS: TRIGLYCERIDE 190.0 mg/dL (0-150)
[2025-11-19 19:58] LABS: LDL CHOLESTEROL 80.0 mg/dL (5-100)
[2025-11-20] VITALS (13 sets, daily range): BP systolic 107–144; BP diastolic 67–90; PULSE 63–84; RESP 16–34; TEMP 36.4–36.7; O2SAT 92–100
[2025-11-20 06:29] LABS: BASOPHILS % 0.5 % (0.0-2.0); EOSINOPHILS % 3.4 % (0.0-5.0); HEMATOCRIT. 37.9 % (42.0-52.0); HEMOGLOBIN. 12.7 g/dL (14.0-18.0); LYMPHOCYTES % 17.0 % (20.0-50.0); MEAN PLATELET VOLUME 9.0 fl (7.4-10.4); MONOCYTES % 6.7 % (2.0-8.0); NEUTROPHILS % 72.4 % (40.0-76.0); PLATELET 182 x1000/uL (130-400); RED BLOOD CELL COUNT 4.17 mill/uL (4.7-6.1); RED CELL DISTRIBUTION WIDTH 13.1 % (11.6-14.6)
[2025-11-20 06:45] LABS: CREATININE 0.9 mg/dL (0.6-1.3); UREA NITROGEN BLOOD 9 mg/dL (9-23)
[2025-11-20] MEDS: GABAPENTIN 300MG CAPSULE PO SCH (09:11)
[2025-11-20] MEDS: BUPROPION HCL 150MG TABLET XL 24HR PO SCH (09:11)
[2025-11-20] MEDS: LISINOPRIL 10MG TABLET PO SCH (09:11)
[2025-11-20] MEDS: FAMOTIDINE 20MG TABLET PO SCH (21:06)
[2025-11-21] VITALS (12 sets, daily range): BP systolic 130–145; BP diastolic 52–92; PULSE 66–75; RESP 7–25; TEMP 36.6–37.2; O2SAT 75–95
[2025-11-21] MEDS: ACETAMINOPHEN 325MG TABLET PO PRN (06:04)
[2025-11-22] VITALS (8 sets, daily range): BP systolic 139–157; BP diastolic 83–96; PULSE 62–81; RESP 12–23; TEMP 36.4–36.7; O2SAT 92–96
[2025-11-23] MEDS ORDERED: LISINOPRIL 20MG TABLET PO SCH (09:00)
== END 2025-11-22 18:10 | disposition home or self-care (01) | DRG 638 ==
LOC: ER 07:25 → 5EST 11:36 → EDBEDREQ 11:40 → EDBEDREQTM 11:40
PROVIDERS: ADMIT Internal Medicine Nephrology; ATTEND Internal Medicine Nephrology
DX: E11.649 Type 2 diabetes mellitus with hypoglycemia without coma (principal); E87.20 Acidosis, unspecified; E66.9 Obesity, unspecified; I11.9 Hypertensive heart disease without heart failure; I70.0 Atherosclerosis of aorta; F32.A Depression, unspecified; I95.9 Hypotension, unspecified; R47.81 Slurred speech; E78.5 Hyperlipidemia, unspecified; Z68.33 Body mass index [BMI] 33.0-33.9, adult; Z79.4 Long term (current) use of insulin; Z79.82 Long term (current) use of aspirin; Z79.84 Long term (current) use of oral hypoglycemic drugs; Z79.899 Other long term (current) drug therapy; Z88.0 Allergy status to penicillin
CPT/HCPCS: 36415; 71045; 80048; 80061; 80076; 81003; 82962; 83036; 83605; 84145; 84484; 85025; 93005; 93306; 93880; 96365; 99291; A4606; J1650; J1815; J2543; J3373; J7030